=== PATIENT | female | born 1940 | race Caucasian/White ===

== ENCOUNTER 2017-01-20 19:04 | Emergency (ER) | payer MEDICARE, BC ==
[2017-01-20 19:55] LABS: CHLORIDE,CL 104 mmol/L (101-111); SODIUM,NA 141 mmol/L (135-145)
[2017-01-20] MEDS ORDERED: Potassium Chloride 10 MEQ Tab.ER PO ONE (20:14)
[2017-01-20 23:25] VITALS: BP 113/58
--- NOTE | 2017-01-21 00:09 | EDM.PDOC ---
ED HPI GENERAL MEDICAL PROBLEM - General Chief Complaint: Cardiovascular Problem Stated Complaint: PROBLEMS REGULATING HEART RATE, [id number] Time Seen by Provider: 01/20/17 19:15 Source of Information: Reports: Patient History Limitations: Reports: No Limitations - History of Present Illness INITIAL COMMENTS - FREE TEXT/NARRATIVE: ED with complaint of high heart . rate and BP today. HR has been in the 80-90's and BP 140's. Has felt dizzy at times. Has hx of feeling dizzy and no cause has been determined. headache this afternoon. Admits hx of migraine auras but usually does not get headache. Has not tried anything for headache. Located right parietal. Reports just not feeling well all day, No nausea, chills or fever . No cold symptoms. COPD hx has O@ at home but does not use continuously . Headache Pain Score (Numeric/FACES): 2 - Related Data Allergies Allergy/AdvReac Type Severity Reaction Status Date / Time promethazine HCl Allergy Severe Airway Verified 01/20/17 19:08 [From Phenergan] Tightness Tetanus Vaccines and Toxoid Allergy Rash Verified 01/20/17 19:08 [Tetanus Vaccines & Toxoid] Home Meds: Home Meds Albuterol [Ventolin HFA] 2 puff INH Q6HRRT PRN 06/27/13 [History] Aspirin [Ecotrin] 81 mg PO BEDTIME 06/27/13 [History] Furosemide 60 mg PO DAILY 06/27/13 [History] Methylcellulose [Citrucel] 479 gm PO DAILY 06/27/13 [History] Nicotine [Nicotrol] 10 mg IH DAILY PRN 06/27/13 [History] Nitroglycerin [Nitrostat] 0.4 mg SL .[id number] PRN 06/27/13 [History] Omeprazole 20 mg PO DAILY 06/27/13 [History] Roflumilast [Daliresp] 500 mcg PO .NOON 06/27/13 [History] Rosuvastatin Calcium [Crestor] 10 mg PO BEDTIME 06/27/13 [History] Tiotropium [Spiriva Handihaler] 18 mcg INH DAILY 06/27/13 [History] Albuterol [Proventil Neb Soln] 2.5 mg NEB Q4HR PRN 06/22/14 [History] Allopurinol [Zyloprim] 150 mg PO DAILY 06/22/14 [History] Carvedilol 12.5 mg PO BID 06/22/14 [History] Montelukast Sodium [Singulair] 10 mg PO DAILY 06/22/14 [History] Potassium Chloride 5 tab PO TID 04/11/15 [History] Fluticasone/Salmeterol [Advair Hfa 230-21 Mcg Inhaler] 1 puff IH BID 09/24/15 [ History] Iron,Carbonyl/Ascorbic Acid [Vitron-C Tablet] 2 each PO DAILY 05/08/16 [History] Past Medical History HEENT History: Reports: Impaired Vision Cardiovascular History: Reports: Afib, High Cholesterol, Hypertension Other Cardiovascular History: aortic stenosis Respiratory History: Reports: COPD, SOB Gastrointestinal History: Reports: None Genitourinary History: Reports: None FUR GRADER History: Reports: Other OB/BYN History: 3 nvd Musculoskeletal History: Reports: Arthritis, Back Pain, Chronic, Fracture, Fibromyalgia, Gout, Neck Pain, Chronic Neurological History: Reports: Vertigo Psychiatric History: Reports: Anxiety Endocrine/Metabolic History: Reports: None Hematologic History: Reports: Anemia Immunologic History: Reports: None Oncologic (Cancer) History: Reports: Colon Dermatologic History: Reports: None - Infectious Disease History Infectious Disease History: Reports: Chicken Pox, Measles - Past Surgical History GI Surgical History: Reports: Appendectomy, Colonoscopy, EGD, Hernia Repair/ Other Female Surgical History: Reports: D&C Neurological Surgical History: Reports: None Social & Family History - Family History Family Medical History: Noncontributory HEENT: Reports: Cataract Cardiac: Reports: CAD, Heart Failure, [place] Other Cardiac Family History: brother had bypass and mother had a heart attack Respiratory: Reports: COPD GI: Reports: Cholelithiasis, GERD : Reports: UTI, Recurrent Other Family History: sister gets lots of UTI OBGYN: Reports: , Other (See Below) Other OBGYN Family History: mom miscarried Musculoskeletal: Reports: Arthritis, Back pain, Chronic, Gout Dermatologic: Reports: Eczema Other Dermatologic Family History: mom had eczema - Tobacco Use Smoking Status *Q: Former Smoker Years of Tobacco use: 40 Packs/Tins Daily: 1 Used Tobacco, but Quit: Yes Month Tobacco Last Used: adam Tobacco Use Comment: quit in 1999 Second Hand Smoke Exposure: No - Caffeine Use Caffeine Use: Reports: Coffee Other Caffeine Use: 1 cup daily - Alcohol Use Days Per Week of Alcohol Use: 0 - Recreational Drug Use Recreational Drug Use: No - Living Situation & Occupation Living situation: Reports: Occupation: Retired ED ROS GENERAL - Review of Systems Review Of Systems: See Below Constitutional: Reports: No Symptoms HEENT: Reports: Glasses Respiratory: Denies: Shortness of Breath, Pleuritic Chest Pain, Cough Cardiovascular: Reports: Dyspnea on Exertion (no change from baseline ), Lightheadedness, Palpitations. Denies: Chest Pain GI/Abdominal: Reports: No Symptoms. Denies: Nausea, Vomiting Musculoskeletal: Reports: No Symptoms Skin: Reports: No Symptoms Neurological: Reports: Dizziness. Denies: Difficulty Walking, Weakness, Change in Speech Psychiatric: Reports: Anxiety ED EXAM, GENERAL - Physical Exam Exam: See Below Exam Limited By: No Limitations General Appearance: Alert, Anxious Eye Exam: Bilateral Eye: EOMI, Normal Fundi, PERRL Ears: Normal External Exam, Hearing Grossly Normal, Normal TMs Nose: Normal Inspection Throat/Mouth: Normal Inspection, No Airway Compromise Head: Atraumatic, Normocephalic Neck: Normal Inspection Respiratory/Chest: Decreased Breath Sounds. No: Respiratory Distress, Rales, Wheezing Cardiovascular: Regular Rate, Rhythm, No Edema GI/Abdominal: Normal Bowel Sounds, Soft Back Exam: Normal Inspection Extremities: Normal Inspection. No: Pedal Edema Neurological: Alert, Oriented, Normal Cognition, No Motor/Sensory Deficits Psychiatric: Normal Affect, Anxious Skin Exam: Warm, Dry, Intact, Normal Color Course - Vital Signs Last Recorded V/S: Last Vital Signs Temp 98 F 01/20/17 21:27 Pulse 66 01/20/17 23:24 Resp 18 01/20/17 22:12 BP 113/58 L 01/20/17 23:24 Pulse Ox 94 L 01/20/17 23:24 Orthostatic Blood Pressure [ 113/65 Standing] Orthostatic Blood Pressure [ 132/62 Sitting] Orthostatic Blood Pressure [ 139/62 Supine] - Orders/Labs/Meds Orders: Active Orders 24 hr Category Date Time Status EKG 12 Lead [EKG Documentation Completion] [RC] URGENT Care 01/20/17 19:17 Active EKG Documentation Completion [RC] URGENT Care 01/20/17 23:20 Active Labs: Laboratory Tests 01/20/17 01/20/1717 Range/Units 19:33 19:33 19:33 WBC 10.3 H (5.0-10.0) 10^3/uL RBC 4.60 (4.2-5.4) 10^6/uL Hgb 13.3 (12.0-16.0) g/dL Hct 40.9 (37.0-47.0) % MCV 88.9 D (80-100) fL MCH 28.9 (27.0-34.0) pg MCHC 32.5 L (33.0-35.0) g/dL Plt Count 270 (150-450) 10^3/uL Neut % (Auto) 69.8 (42.2-75.2) % Lymph % (Auto) 19.7 L (20.5-50.1) % [place] % (Auto) 8.3 H (2-8) % Eos % (Auto) 1.7 (1.0-3.0) % Baso % (Auto) 0.5 (0.0-1.0) % PT 9.3 D (9.0-12.0) SEC INR 0.9 (0.9-1.2) Sodium 141 (135-145) mmol/L Potassium 3.0 L (3.6-5.0) mmol/L Chloride 104 (101-111) mmol/L Carbon Dioxide 25.0 (21.0-31.0) mmol/L Anion Gap 15.0 BUN 13 (7-18) mg/dL Creatinine 0.7 (0.6-1.3) mg/dL Est Cr Clr Drug Dosing 63.75 mL/min Estimated GFR (MDRD) > 60 BUN/Creatinine Ratio 18.57 Glucose 129 H (74-105) mg/dL Calcium 9.8 (8.4-10.2) mg/dl Total Bilirubin 0.5 (0.2-1.0) mg/dL AST 20 (10-42) IU/L ALT 16 (10-60) IU/L Alkaline Phosphatase 83 (42-121) IU/L Troponin I < 0.02 (0.00-0.02) ng/ml B-Natriuretic Peptide 119 H (0-100) pg/ml Total Protein 7.5 (6.7-8.2) g/dl Albumin 4.4 (3.2-5.5) g/dl Globulin 3.1 Albumin/Globulin Ratio 1.42 Amylase 108 H (28-100) U/L Lipase 30 (22-51) U/L Urine Color (YELLOW) Urine Appearance (CLEAR) Urine pH (5.0-9.0) Ur Specific [place] (1.005-1.030) Urine Protein (NEGATIVE) Urine Glucose (UA) (NEGATIVE) Urine Ketones (NEGATIVE) Urine Occult Blood (NEGATIVE) Urine Nitrite (NEGATIVE) Urine Bilirubin (NEGATIVE) Urine Urobilinogen (0.2-1.0) mg/dL Ur Leukocyte Esterase (NEGATIVE) Urine RBC /HPF Urine WBC (0-5/HPF) /HPF Ur Epithelial Cells /HPF Urine Bacteria (0-FEW/HPF) /HPF 01/20/17 01/20/17 Range/Units 19:47 23:20 WBC (5.0-10.0) 10^3/uL RBC (4.2-5.4) 10^6/uL Hgb (12.0-16.0) g/dL Hct (37.0-47.0) % MCV (80-100) fL MCH (27.0-34.0) pg MCHC (33.0-35.0) g/dL Plt Count (150-450) 10^3/uL Neut % (Auto) (42.2-75.2) % Lymph % (Auto) (20.5-50.1) % [place] % (Auto) (2-8) % Eos % (Auto) (1.0-3.0) % Baso % (Auto) (0.0-1.0) % PT (9.0-12.0) SEC INR (0.9-1.2) Sodium (135-145) mmol/L Potassium (3.6-5.0) mmol/L Chloride (101-111) mmol/L Carbon Dioxide (21.0-31.0) mmol/L Anion Gap BUN (7-18) mg/dL Creatinine (0.6-1.3) mg/dL Est Cr Clr Drug Dosing mL/min Estimated GFR (MDRD) BUN/Creatinine Ratio Glucose (74-105) mg/dL Calcium (8.4-10.2) mg/dl Total Bilirubin (0.2-1.0) mg/dL AST (10-42) IU/L ALT (10-60) IU/L Alkaline Phosphatase (42-121) IU/L Troponin I < 0.02 (0.00-0.02) ng/ml B-Natriuretic Peptide (0-100) pg/ml Total Protein (6.7-8.2) g/dl Albumin (3.2-5.5) g/dl Globulin Albumin/Globulin Ratio Amylase (28-100) U/L Lipase (22-51) U/L Urine Color Light yellow (YELLOW) Urine Appearance Clear (CLEAR) Urine pH 6.0 (5.0-9.0) Ur Specific [place] <= 1.005 (1.005-1.030) Urine Protein Negative (NEGATIVE) Urine Glucose (UA) Negative (NEGATIVE) Urine Ketones Negative (NEGATIVE) Urine Occult Blood Negative (NEGATIVE) Urine Nitrite Negative (NEGATIVE) Urine Bilirubin Negative (NEGATIVE) Urine Urobilinogen 0.2 (0.2-1.0) mg/dL Ur Leukocyte Esterase Negative (NEGATIVE) Urine RBC 0-5 /HPF Urine WBC 0-5 (0-5/HPF) /HPF Ur Epithelial Cells Rare /HPF Urine Bacteria Rare (0-FEW/HPF) /HPF Meds: Medications Discontinued Medications Generic Name Dose Route Start Last Admin Trade Name Freq PRN Reason Stop Dose Admin Potassium Chloride 20 meq 01/20/17 20:14 01/20/17 20:24 Klor-Con 10 PO 01/20/17 20:15 20 meq ONETIME ONE Administration - Radiology Interpretation Free Text/Narrative:: CXR : emphysema, no pneumonia. CT head: No acute changes, - Re-Assessments/Exams Free Text/Narrative Re-Assessment/Exam: Telemetry continued NSR rate, decreased to 70-80's, BP stable. No pain, Repeat Troponin and EKG negative. Patient instructed to utilize oxygen on more continual basis. Follow up in clinic for recheck of potassium. Departure - Departure Time of Disposition: 00:05 Disposition: Home, Self-Care 01 Condition: Good Clinical Impression: Anxiety, Palpitations Instructions: Palpitations, [id number] Forms: ED Department Discharge Additional Instructions: Rest follow up in clinic on for recheck of Potassium - My Orders Last 24 Hours: My Active Orders 01/20/17 19:17 EKG 12 Lead [EKG Documentation Completion] [RC] URGENT 01/20/17 23:20 EKG Documentation Completion [RC] URGENT - Assessment/Plan Last 24 Hours: My Active Orders 01/20/17 19:17 EKG 12 Lead [EKG Documentation Completion] [RC] URGENT 01/20/17 23:20 EKG Documentation Completion [RC] URGENT
--- NOTE | 2017-01-21 12:57 | EKG ---
01/20/2017 - SHEBA GANDHI - TIME: 1909 hours EKG shows normal sinus rhythm. 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 [facility] /[id number]
--- NOTE | 2017-01-21 13:17 | EKG ---
01/20/2017 - SHEBA GANDHI - TIME: 2316 hours. FINDINGS: EKG shows normal sinus rhythm. 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 [facility] /[id number]
== END 2017-01-21 00:31 | disposition home or self-care (01) ==
LOC: DL.ED 19:04
DX: F41.9 Anxiety disorder, unspecified (principal); E78.00 Pure hypercholesterolemia, unspecified; I10 Essential (primary) hypertension; J44.9 Chronic obstructive pulmonary disease, unspecified; Z88.8 Allergy status to other drugs, medicaments and biological substances; Z79.899 Other long term (current) drug therapy; Z87.891 Personal history of nicotine dependence
CPT/HCPCS: 36415; 70450; 71010; 80053; 81001; 82150; 83690; 83880; 84484; 85025; 85610; 93005; 93010; 99284; A9270

== ENCOUNTER 2017-04-09 08:53 | Emergency (ER) | payer MEDICARE, BC ==
--- NOTE | 2017-04-09 09:23 | EDM.PDOC ---
ED HPI GENERAL MEDICAL PROBLEM - General Chief Complaint: Abdominal Pain Stated Complaint: LOWER ABD PAIN, RT SIDE Time Seen by Provider: 04/09/17 09:23 Source of Information: Reports: Patient, Old Records, RN, RN Notes Reviewed History Limitations: Reports: No Limitations - History of Present Illness INITIAL COMMENTS - FREE TEXT/NARRATIVE: Arrives from home by POV with c/o onset of RLQ abdominal pain last night that has persisted and is worse today. Pt has Hx of remote appendectomy. Denies fever , chills, N/V/D/C. Pt states her stool is always dark due to chronic oral iron supplementation for anemia. Denies any radiating pain, or urinary symptoms. Denies any blood or mucus in stool. Last BM yesterday and described as normal per pt. Onset Date: 04/08/17 Duration: Constant, Getting Worse Location: Reports: Abdomen Quality: Reports: Ache Severity: Moderate Improves with: Reports: None Worsens with: Reports: None Associated Symptoms: Reports: No Other Symptoms Right Lower Abdomen Pain Score (Numeric/FACES): 2 - Related Data Allergies Allergy/AdvReac Type Severity Reaction Status Date / Time promethazine HCl Allergy Severe Airway Verified 04/09/17 09:17 [From Phenergan] Tightness Tetanus Vaccines and Toxoid Allergy Rash Verified 04/09/17 09:17 [Tetanus Vaccines & Toxoid] Home Meds: Home Meds Albuterol [Ventolin HFA] 2 puff INH Q6HRRT PRN 06/27/13 [History] Aspirin [Ecotrin] 81 mg PO BEDTIME 06/27/13 [History] Furosemide 60 mg PO DAILY 06/27/13 [History] Methylcellulose [Citrucel] 479 gm PO DAILY 06/27/13 [History] Nicotine [Nicotrol] 10 mg IH DAILY PRN 06/27/13 [History] Nitroglycerin [Nitrostat] 0.4 mg SL .[id number] PRN 06/27/13 [History] Omeprazole 20 mg PO DAILY 06/27/13 [History] Roflumilast [Daliresp] 500 mcg PO .NOON 06/27/13 [History] Rosuvastatin Calcium [Crestor] 10 mg PO BEDTIME 06/27/13 [History] Tiotropium [Spiriva Handihaler] 18 mcg INH DAILY 06/27/13 [History] Albuterol [Proventil Neb Soln] 2.5 mg NEB Q4HR PRN 06/22/14 [History] Allopurinol [Zyloprim] 150 mg PO DAILY 06/22/14 [History] Carvedilol 12.5 mg PO BID 06/22/14 [History] Montelukast Sodium [Singulair] 10 mg PO DAILY 06/22/14 [History] Potassium Chloride 5 tab PO TID 04/11/15 [History] Fluticasone/Salmeterol [Advair Hfa 230-21 Mcg Inhaler] 1 puff IH BID 09/24/15 [ History] Iron,Carbonyl/Ascorbic Acid [Vitron-C Tablet] 2 each PO DAILY 05/08/16 [History] Past Medical History HEENT History: Reports: Impaired Vision Cardiovascular History: Reports: Afib, High Cholesterol, Hypertension, PVD Other Cardiovascular History: aortic stenosis Respiratory History: Reports: COPD, SOB Gastrointestinal History: Reports: Diverticulosis, GERD, Hiatal Hernia, Other ( See Below) (non-alcoholic steatohepatitis) Genitourinary History: Reports: None TRAINER History: Reports: Other OB/BYN History: 3 nvd Musculoskeletal History: Reports: Arthritis, Back Pain, Chronic, Fracture, Fibromyalgia, Gout, Neck Pain, Chronic Neurological History: Reports: Vertigo Psychiatric History: Reports: Anxiety Endocrine/Metabolic History: Reports: None Hematologic History: Reports: Anemia Immunologic History: Reports: None Oncologic (Cancer) History: Reports: Colon Dermatologic History: Reports: None - Infectious Disease History Infectious Disease History: Reports: Chicken Pox, Measles - Past Surgical History HEENT Surgical History: Reports: Adenoidectomy, Tonsillectomy Cardiovascular Surgical History: Reports: Percutaneous Transluminal Angioplasty , Valve Replacement (aortic) GI Surgical History: Reports: Appendectomy, Colonoscopy, EGD, Hernia Repair/ Other, Other (See Below) (sigmoidectomy) Female Surgical History: Reports: D&C Neurological Surgical History: Reports: None Musculoskeletal Surgical History: Reports: ORIF (left hip) Social & Family History - Family History Family Medical History: Noncontributory HEENT: Reports: Cataract Cardiac: Reports: CAD, Heart Failure, [place] Other Cardiac Family History: brother had bypass and mother had a heart attack Respiratory: Reports: COPD GI: Reports: Cholelithiasis, GERD : Reports: UTI, Recurrent Other Family History: sister gets lots of UTI OBGYN: Reports: , Other (See Below) Other OBGYN Family History: mom miscarried Musculoskeletal: Reports: Arthritis, Back pain, Chronic, Gout Dermatologic: Reports: Eczema Other Dermatologic Family History: mom had eczema - Tobacco Use Smoking Status *Q: Former Smoker Years of Tobacco use: 40 Packs/Tins Daily: 1 Used Tobacco, but Quit: Yes Month Tobacco Last Used: apr Second Hand Smoke Exposure: No - Caffeine Use Caffeine Use: Reports: Coffee Other Caffeine Use: 1 cup daily - Alcohol Use Days Per Week of Alcohol Use: 0 - Recreational Drug Use Recreational Drug Use: No - Living Situation & Occupation Living situation: Reports: Occupation: Retired ED ROS GENERAL - Review of Systems Review Of Systems: ROS reveals no pertinent complaints other than HPI. ED EXAM, GI/ABD - Physical Exam Exam: See Below Exam Limited By: No Limitations General Appearance: Alert, WD/WN, No Apparent Distress Throat/Mouth: Normal Inspection Head: Atraumatic, Normocephalic Neck: Normal Inspection, Supple, Non-Tender, Full Range of Motion Respiratory/Chest: No Respiratory Distress, Lungs Clear, Normal Breath Sounds, No Accessory Muscle Use, Chest Non-Tender Cardiovascular: Regular Rate, Rhythm, No Edema GI/Abdominal Exam: Normal Bowel Sounds, Soft, No Distention, No Abnormal Bruit, Tender (focal to RLQ). No: Guarding, Rigid, Rebound (Female) Exam: Deferred Rectal (Female) Exam: Deferred Back Exam: Normal Inspection. No: CVA Tenderness (L), CVA Tenderness (R) Extremities: Normal Inspection Neurological: Alert, Oriented, CN II-XII Intact, Normal Cognition, Normal Gait, No Motor/Sensory Deficits Psychiatric: Normal Affect, Normal Mood Skin Exam: Warm, Dry, Intact, Normal Color, No Rash Course - Vital Signs Last Recorded V/S: Last Vital Signs Temp 36.6 C 04/09/17 11:14 Pulse 78 04/09/17 11:14 Resp 16 04/09/17 11:14 BP 130/54 L 04/09/17 11:14 Pulse Ox 94 L 04/09/17 11:14 - Orders/Labs/Meds Orders: Active Orders 24 hr Category Date Time Status Peripheral IV Care [RC] . DIRECTED Care 04/09/17 09:35 Active Abdomen Pelvis w Cont [CT] Urgent Exams 04/09/17 09:57 Taken Sodium Chloride 0.9% [Saline Flush] Med 04/09/17 09:35 Active 10 ml FLUSH ASDIRECTED PRN Peripheral IV Insertion Adult [OM.PC] Stat Oth 04/09/17 09:35 Ordered Medication Orders Sodium Chloride (Saline Flush) 10 ml FLUSH ASDIRECTED PRN PRN Reason: Keep Vein Open Last Admin: 04/09/17 09:55 Dose: 10 ml Labs: Laboratory Tests 04/09/17 04/09/17 04/09/17 Range/Units 09:45 09:45 09:45 WBC 8.3 (5.0-10.0) 10^3/uL RBC 4.56 (4.2-5.4) 10^6/uL Hgb 12.9 (12.0-16.0) g/dL Hct 39.3 (37.0-47.0) % MCV 86.2 (80-100) fL MCH 28.3 (27.0-34.0) pg MCHC 32.8 L (33.0-35.0) g/dL Plt Count 257 (150-450) 10^3/uL Neut % (Auto) 72.0 (42.2-75.2) % Lymph % (Auto) 17.2 L (20.5-50.1) % [place] % (Auto) 8.6 H (2-8) % Eos % (Auto) 1.8 (1.0-3.0) % Baso % (Auto) 0.4 (0.0-1.0) % Sodium 137 (135-145) mmol/L Potassium 3.1 L (3.6-5.0) mmol/L Chloride 101 (101-111) mmol/L Carbon Dioxide 27.0 (21.0-31.0) mmol/L Anion Gap 12.1 BUN 16 (7-18) mg/dL Creatinine 0.7 (0.6-1.3) mg/dL Est Cr Clr Drug Dosing 61.52 mL/min Estimated GFR (MDRD) > 60 BUN/Creatinine Ratio 22.85 Glucose 110 H (74-105) mg/dL Lactic Acid 0.7 (0.5-2.2) mmol/L Calcium 9.5 (8.4-10.2) mg/dl Total Bilirubin 0.6 (0.2-1.0) mg/dL AST 21 (10-42) IU/L ALT 16 (10-60) IU/L Alkaline Phosphatase 72 (42-121) IU/L Total Protein 7.3 (6.7-8.2) g/dl Albumin 4.2 (3.2-5.5) g/dl Globulin 3.1 Albumin/Globulin Ratio 1.35 Amylase 100 (28-100) U/L Lipase 24 (22-51) U/L Urine Color (YELLOW) Urine Appearance (CLEAR) Urine pH (5.0-9.0) Ur Specific [place] (1.005-1.030) Urine Protein (NEGATIVE) Urine Glucose (UA) (NEGATIVE) Urine Ketones (NEGATIVE) Urine Occult Blood (NEGATIVE) Urine Nitrite (NEGATIVE) Urine Bilirubin (NEGATIVE) Urine Urobilinogen (0.2-1.0) mg/dL Ur Leukocyte Esterase (NEGATIVE) Urine RBC /HPF Urine WBC (0-5/HPF) /HPF Ur Epithelial Cells /HPF Urine Bacteria (0-FEW/HPF) /HPF Urine Mucus /LPF 04/09/17 Range/Units 09:56 WBC (5.0-10.0) 10^3/uL RBC (4.2-5.4) 10^6/uL Hgb (12.0-16.0) g/dL Hct (37.0-47.0) % MCV (80-100) fL MCH (27.0-34.0) pg MCHC (33.0-35.0) g/dL Plt Count (150-450) 10^3/uL Neut % (Auto) (42.2-75.2) % Lymph % (Auto) (20.5-50.1) % [place] % (Auto) (2-8) % Eos % (Auto) (1.0-3.0) % Baso % (Auto) (0.0-1.0) % Sodium (135-145) mmol/L Potassium (3.6-5.0) mmol/L Chloride (101-111) mmol/L Carbon Dioxide (21.0-31.0) mmol/L Anion Gap BUN (7-18) mg/dL Creatinine (0.6-1.3) mg/dL Est Cr Clr Drug Dosing mL/min Estimated GFR (MDRD) BUN/Creatinine Ratio Glucose (74-105) mg/dL Lactic Acid (0.5-2.2) mmol/L Calcium (8.4-10.2) mg/dl Total Bilirubin (0.2-1.0) mg/dL AST (10-42) IU/L ALT (10-60) IU/L Alkaline Phosphatase (42-121) IU/L Total Protein (6.7-8.2) g/dl Albumin (3.2-5.5) g/dl Globulin Albumin/Globulin Ratio Amylase (28-100) U/L Lipase (22-51) U/L Urine Color Yellow (YELLOW) Urine Appearance Clear (CLEAR) Urine pH 6.0 (5.0-9.0) Ur Specific [place] 1.020 (1.005-1.030) Urine Protein 100 H (NEGATIVE) Urine Glucose (UA) Negative (NEGATIVE) Urine Ketones Negative (NEGATIVE) Urine Occult Blood Trace-intact H (NEGATIVE) Urine Nitrite Negative (NEGATIVE) Urine Bilirubin Negative (NEGATIVE) Urine Urobilinogen 0.2 (0.2-1.0) mg/dL Ur Leukocyte Esterase Negative (NEGATIVE) Urine RBC 0-5 /HPF Urine WBC 0-5 (0-5/HPF) /HPF Ur Epithelial Cells Many H /HPF Urine Bacteria Few (0-FEW/HPF) /HPF Urine Mucus Moderate H /LPF Meds: Medications Generic Name Dose Route Start Last Admin Trade Name Freq PRN Reason Stop Dose Admin Sodium Chloride 10 ml 04/09/17 09:35 04/09/17 09:55 Saline Flush FLUSH 10 ml ASDIRECTED PRN Administration Keep Vein Open Discontinued Medications Generic Name Dose Route Start Last Admin Trade Name Freq PRN Reason Stop Dose Admin Sodium Chloride 1,000 mls @ 999 mls/hr 04/09/17 09:56 04/09/17 10:07 Normal Saline IV 04/09/17 10:56 999 mls/hr .BOLUS ONE Administration Iopamidol 75 ml 04/09/17 09:57 04/09/17 11:02 Isovue-300 (61%) IVPUSH 04/09/17 09:58 75 ml ONETIME ONE Administration - Radiology Interpretation Free Text/Narrative:: CT Abd/Pelvis: no acute findings per Rad. report. Departure - Departure Time of Disposition: 11:59 Disposition: Home, Self-Care 01 Condition: Good Clinical Impression: Abdominal pain Qualifiers: Abdominal location: right lower quadrant Qualified Code(s): R10.31 - Right lower quadrant pain - Discharge Information Instructions: Abdominal Pain, Adult, [id number] Forms: ED Department Discharge Additional Instructions: Try prune juice and/or stool softener. High fiber diet with fresh fruits and vegetables. Follow up in clinic with your doctor if the pain does not resolve in the next 24 hours. Return to ER if you develop any fever, or other concerning new symptoms. - My Orders Last 24 Hours: My Active Orders 04/09/17 09:35 Peripheral IV Care [RC] . DIRECTED Sodium Chloride 0.9% [Saline Flush] 10 ml FLUSH ASDIRECTED PRN Peripheral IV Insertion Adult [OM.PC] Stat 04/09/17 09:57 Abdomen Pelvis w Cont [CT] Urgent - Assessment/Plan Last 24 Hours: My Active Orders 04/09/17 09:35 Peripheral IV Care [RC] . DIRECTED Sodium Chloride 0.9% [Saline Flush] 10 ml FLUSH ASDIRECTED PRN Peripheral IV Insertion Adult [OM.PC] Stat 04/09/17 09:57 Abdomen Pelvis w Cont [CT] Urgent
[2017-04-09] MEDS ORDERED: Sodium Chloride 0.9% 10 ML Syringe FLUSH PRN (09:35)
[2017-04-09] MEDS ORDERED: Sodium Chloride 0.9% 1,000 ML IV ONE (09:56)
[2017-04-09] MEDS ORDERED: Iopamidol 612 MG/ML 75 ML Bottle IVPUSH ONE (09:57)
[2017-04-09 10:13] LABS: CHLORIDE,CL 101 mmol/L (101-111); SODIUM,NA 137 mmol/L (135-145)
[2017-04-09 11:15] VITALS: BP 130/54
--- NOTE | 2017-04-09 12:53 | CT ---
Clinical history: 77-year-old 135 pound female with COPD and right lower quadrant pain who has had pr evious "colon surgery" and appendectomy (CT evaluation abdomen for iron deficiency anemia and chroni c GI bleed on 08 September 2012 revealed "diverticulosis sigmoid and left colon"). Scan technique: Volume acquisition of data from the abdomen and pelvis obtained without oral contrast but during/after intravenous administration 75 cc nonionic Isovue contrast (3 cc/s via injector) whi le the patient was lying supine on the Siemens multi slice scanner [place], [place]. All data archived in the PACS system for storage, reformatting and study. Interpretation: 1. Numerous diverticula sigmoid and descending left colon without associated signs of inflammation. 2. Normal gallbladder. Stomach, spleen, pancreas and adrenal glands unremarkable. Large (18.2 cm L) h omogeneously dense liver without discrete intrahepatic cystic or solid mass lesion and no abnormal dilatation of t he intra/extrahepatic ducts. 3. Extensive atheromatous calcifications ectatic abdominal aorta (mild infrarenal aneurysmal
== END 2017-04-09 12:07 | disposition home or self-care (01) ==
LOC: DL.ED 08:53
DX: R10.31 Right lower quadrant pain (principal); I10 Essential (primary) hypertension; E78.00 Pure hypercholesterolemia, unspecified; Z87.891 Personal history of nicotine dependence; Z88.8 Allergy status to other drugs, medicaments and biological substances; Z79.82 Long term (current) use of aspirin; Z79.899 Other long term (current) drug therapy; Z88.7 Allergy status to serum and vaccine
CPT/HCPCS: 36415; 74177; 80053; 81001; 82150; 83605; 83690; 85025; 96360; 99284; J7030; J7050; Q9967

== ENCOUNTER 2017-11-25 11:16 | Emergency (ER) | payer MEDICARE, BC ==
[2017-11-25 11:28] VITALS: BP 164/71
[2017-11-25] MEDS ORDERED: Oxymetazoline 0.05% Nasal Spray 15 ML Bottle ONE (11:35)
[2017-11-25] MEDS ORDERED: Oxymetazoline 0.05% Nasal Spray 15 ML Bottle NAS ONE (11:49)
--- NOTE | 2017-11-25 12:30 | EDM.PDOC ---
ED HPI GENERAL MEDICAL PROBLEM - General Chief Complaint: ENT Problem Stated Complaint: NOSE BLEED Time Seen by Provider: 11/25/17 12:15 Source of Information: Reports: Patient History Limitations: Reports: No Limitations - History of Present Illness INITIAL COMMENTS - FREE TEXT/NARRATIVE: This 77 yo female patient reports to the ED with a bloody nose. The patient reports she has had a history of nosebleeds in the past, but none have been this bad. . The patient reports she has attempted to use direct pressure, but she has continued to bleed. The patient has been using AYR, but continues to have problems. Onset: Today Duration: Hour(s):, Constant Location: Reports: Face (right nare) Quality: Reports: Other Severity: Moderate Improves with: Reports: None Worsens with: Reports: None Associated Symptoms: Reports: No Other Symptoms - Related Data Allergies Allergy/AdvReac Type Severity Reaction Status Date / Time promethazine HCl Allergy Severe Airway Verified 11/25/17 11:38 [From Phenergan] Tightness Tetanus Vaccines and Toxoid Allergy Rash Verified 11/25/17 11:38 [Tetanus Vaccines & Toxoid] Home Meds: Home Meds Albuterol [Ventolin HFA] 2 puff INH Q6HRRT PRN 06/27/13 [History] Aspirin [Ecotrin] 81 mg PO BEDTIME 06/27/13 [History] Furosemide 40 mg PO DAILY 06/27/13 [History] Nicotine [Nicotrol] 10 mg IH DAILY PRN 06/27/13 [History] Nitroglycerin [Nitrostat] 0.4 mg SL .[id number] PRN 06/27/13 [History] Omeprazole 20 mg PO DAILY 06/27/13 [History] Roflumilast [Daliresp] 500 mcg PO .NOON 06/27/13 [History] Rosuvastatin Calcium [Crestor] 20 mg PO BEDTIME 06/27/13 [History] Tiotropium [Spiriva Handihaler] 18 mcg INH DAILY 06/27/13 [History] Albuterol [Proventil Neb Soln] 2.5 mg NEB Q4HR PRN 06/22/14 [History] Allopurinol [Zyloprim] 300 mg PO DAILY 06/22/14 [History] Carvedilol 25 mg PO BID 06/22/14 [History] Montelukast Sodium [Singulair] 10 mg PO DAILY 06/22/14 [History] Potassium Chloride 20 meq PO TID 04/11/15 [History] Fluticasone/Salmeterol [Advair Hfa 230-21 Mcg Inhaler] 1 puff IH BID 09/24/15 [ History] Acetaminophen [Tylenol Arthritis Pain] 650 mg PO Q8H PRN 11/08/17 [History] Past Medical History HEENT History: Reports: Epistaxis, Impaired Vision, Other (See Below) Cardiovascular History: Reports: Afib, Aneurysm, CAD, Heart Valve Replacement, High Cholesterol, Hypertension, Pacemaker, PVD Other Cardiovascular History: aortic stenosis Respiratory History: Reports: Asthma, COPD, SOB Gastrointestinal History: Reports: Diverticulosis, GERD, Hiatal Hernia, Other ( See Below) Genitourinary History: Reports: None 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 History: 3 nvd Musculoskeletal History: Reports: Arthritis, Back Pain, Chronic, Fracture, Fibromyalgia, Gout, Neck Pain, Chronic, Osteoarthritis, Other (See Below) Neurological History: Reports: Vertigo, Other (See Below) Psychiatric History: Reports: Anxiety Endocrine/Metabolic History: Reports: None, Other (See Below) Hematologic History: Reports: None, Anemia Immunologic History: Reports: None Oncologic (Cancer) History: Reports: Colon Dermatologic History: Reports: None - Infectious Disease History Infectious Disease History: Reports: Chicken Pox, Measles - Past Surgical History HEENT Surgical History: Reports: Adenoidectomy, Tonsillectomy Cardiovascular Surgical History: Reports: Percutaneous Transluminal Angioplasty , Valve Replacement GI Surgical History: Reports: Appendectomy, Colonoscopy, EGD, Hernia Repair/ Other, Other (See Below) Female Surgical History: Reports: D&C Neurological Surgical History: Reports: None Musculoskeletal Surgical History: Reports: ORIF Social & Family History - Family History Family Medical History: Noncontributory HEENT: Reports: Cataract Cardiac: Reports: CAD, Heart Failure, [place] Other Cardiac Family History: brother had bypass and mother had a heart attack Respiratory: Reports: COPD GI: Reports: Cholelithiasis, GERD : Reports: UTI, Recurrent Other Family History: sister gets lots of UTI OBGYN: Reports: , Other (See Below) Other OBGYN Family History: mom miscarried Musculoskeletal: Reports: Arthritis, Back pain, Chronic, Gout Dermatologic: Reports: Eczema Other Dermatologic Family History: mom had eczema - Tobacco Use Smoking Status *Q: Former Smoker Used Tobacco, but Quit: Yes Month/Year Tobacco Last Used: 04/1997 - Caffeine Use Caffeine Use: Reports: Coffee Other Caffeine Use: 1 cup daily - Recreational Drug Use Recreational Drug Use: No - Living Situation & Occupation Living situation: Reports: Occupation: Retired ED ROS ENT - Review of Systems Review Of Systems: ROS reveals no pertinent complaints other than HPI. ED EXAM, ENT - Physical Exam Exam: See Below Exam Limited By: No Limitations General Appearance: Alert, WD/WN, Moderate Distress Eye Exam: Bilateral Eye: EOMI, Normal Inspection, PERRL Ears: Normal External Exam, Normal Canal, Hearing Grossly Normal, Normal TMs Nose: Dried Blood (right nare) Mouth/Throat: Normal Inspection, Normal Gums, Normal Lips, Other (some bloody transudate in the posterior pharynx) Head: Atraumatic, Normocephalic Neck: Normal Inspection, Supple, Non-Tender, Full Range of Motion Respiratory/Chest: No Respiratory Distress, Lungs Clear, Normal Breath Sounds, No Accessory Muscle Use, Chest Non-Tender Cardiovascular: Normal Peripheral Pulses, Regular Rate, Rhythm, No Edema, No Gallop, No JVD, No Murmur, No Rub GI/Abdominal: Normal Bowel Sounds, Soft, Non-Tender, No Organomegaly, No Distention, No Abnormal Bruit, No Mass (Female) Exam: Deferred Rectal (Female) Exam: Deferred Back: Normal Inspection, Full Range of Motion Extremities: Normal Inspection, Normal Range of Motion, Non-Tender, No Pedal Edema, Normal Capillary Refill Neurological: Alert, Oriented, CN II-XII Intact, Normal Cognition, Normal Gait, Normal Reflexes, No Motor/Sensory Deficits Psychiatric: Normal Affect, Normal Mood Skin: Warm, Dry, Intact, Normal Color, No Rash Lymphatic: No Adenopathy Course - Vital Signs Last Recorded V/S: Last Vital Signs Temp 37.2 C 11/25/17 11:27 Pulse 82 11/25/17 11:27 Resp 17 11/25/17 11:27 BP 164/71 H 11/25/17 11:27 Pulse Ox 96 11/25/17 11:27 - Orders/Labs/Meds Meds: Medications Discontinued Medications Generic Name Dose Route Start Last Admin Trade Name Freq PRN Reason Stop Dose Admin Oxymetazoline HCl Confirm 11/25/17 11:35 11/25/17 11:49 Afrin Original 0.05% Nasal [place] Administered 11/25/17 11:36 Not Given Dose 15 ml .ROUTE .STK-MED ONE Oxymetazoline HCl 1 ml 11/25/17 11:49 11/25/17 11:51 Afrin Original 0.05% Nasal [place] YENY 11/25/17 11:50 1 ml ONETIME ONE Administration Departure - Departure Time of Disposition: 13:01 Disposition: Home, Self-Care 01 Condition: Fair Clinical Impression: Epistaxis - Discharge Information *PRESCRIPTION DRUG MONITORING PROGRAM REVIEWED*: Not Applicable *COPY OF PRESCRIPTION DRUG MONITORING REPORT IN PATIENT RONNA: Not Applicable Instructions: Nosebleed, [id number] Forms: ED Department Discharge Care Plan Goals: The patient was advised of the examination results during the visit. While in the ED, Afrin nasal spray was applied to stop the bleeding. The patient was encouraged to apply a small amount of Aquaphor to each nostril 1-2 times per day to increase the moisture in her nares. If the patient has any additional symptoms or concerns, the patient should follow-up with her primary care facility or return to the emergency department.
== END 2017-11-25 13:09 | disposition home or self-care (01) ==
LOC: DL.ED 11:16
DX: R04.0 Epistaxis (principal); Z87.891 Personal history of nicotine dependence; Z79.899 Other long term (current) drug therapy; Z88.8 Allergy status to other drugs, medicaments and biological substances
CPT/HCPCS: 99283

== ENCOUNTER 2019-01-26 00:35 | Emergency (ER) | payer MEDICARE, BC ==
[2019-01-26 01:18] VITALS: BP 132/70; PULSE 78
--- NOTE | 2019-01-26 01:49 | EDM.PDOC ---
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 She reports trying to ly down to rest but the palpitation did not resolved. She admits to having 2/10 chest discomfort and with her multiple comorbidities, she states she did not want to take chances. On her way to the ER, the palpitations resolved. She denies any CP or SOB at this time. - Related Data Allergies Allergy/AdvReac Type Severity Reaction Status Date / Time promethazine HCl Allergy Severe Airway Verified 01/26/19 01:04 [From Phenergan] Tightness Tetanus Vaccines and Toxoid Allergy Rash Verified 01/26/19 01:04 [Tetanus Vaccines & Toxoid] Home Meds: Home Meds Albuterol [Ventolin HFA] 2 puff INH Q6HRRT PRN 06/27/13 [History] Aspirin [Ecotrin EC] 81 mg PO BEDTIME 06/27/13 [History] Furosemide 40 mg PO DAILY 06/27/13 [History] Nicotine [Nicotrol] 10 mg IH DAILY PRN 06/27/13 [History] Nitroglycerin [Nitrostat] 0.4 mg SL .[id number] PRN 06/27/13 [History] Omeprazole 20 mg PO DAILY 06/27/13 [History] Roflumilast [Daliresp] 500 mcg PO .NOON 06/27/13 [History] Rosuvastatin Calcium [Crestor] 20 mg PO BEDTIME 06/27/13 [History] Tiotropium [Spiriva Handihaler] 18 mcg INH DAILY 06/27/13 [History] Albuterol [Proventil Neb Soln] 2.5 mg NEB Q4HR PRN 06/22/14 [History] Allopurinol [Zyloprim] 300 mg PO DAILY 06/22/14 [History] Carvedilol 25 mg PO BID 06/22/14 [History] Montelukast Sodium [Singulair] 10 mg PO DAILY 06/22/14 [History] Potassium Chloride 20 meq PO TID 04/11/15 [History] Fluticasone/Salmeterol [Advair Hfa 230-21 Mcg Inhaler] 1 puff IH BID 09/24/15 [ History] Acetaminophen [Tylenol Arthritis Pain] 650 mg PO Q8H PRN 11/08/17 [History] Past Medical History HEENT History: Reports: Epistaxis, Impaired Vision, Other (See Below) Cardiovascular History: Reports: Afib, Aneurysm, CAD, Heart Valve Replacement, High Cholesterol, Hypertension, Pacemaker, PVD Other Cardiovascular History: aortic stenosis Respiratory History: Reports: Asthma, COPD, SOB Gastrointestinal History: Reports: Diverticulosis, GERD, Hiatal Hernia, Other ( See Below) Genitourinary History: Reports: None 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 NETWORK LIAISON History: 3 nvd Musculoskeletal History: Reports: Arthritis, Back Pain, Chronic, Fracture, Fibromyalgia, Gout, Neck Pain, Chronic, Osteoarthritis, Other (See Below) Neurological History: Reports: Vertigo Psychiatric History: Reports: Anxiety Endocrine/Metabolic History: Reports: None, Other (See Below) Hematologic History: Reports: None, Anemia Immunologic History: Reports: None Oncologic (Cancer) History: Reports: Colon Dermatologic History: Reports: None - Infectious Disease History Infectious Disease History: Reports: Chicken Pox, Measles - Past Surgical History HEENT Surgical History: Reports: Adenoidectomy, Tonsillectomy Cardiovascular Surgical History: Reports: Percutaneous Transluminal Angioplasty , Valve Replacement GI Surgical History: Reports: Appendectomy, Colonoscopy, EGD, Hernia Repair/ Other, Other (See Below) Female Surgical History: Reports: D&C Neurological Surgical History: Reports: None Musculoskeletal Surgical History: Reports: ORIF Social & Family History - Family History Family Medical History: Noncontributory HEENT: Reports: Cataract Cardiac: Reports: CAD, Heart Failure, [place] Other Cardiac Family History: brother had bypass and mother had a heart attack Respiratory: Reports: COPD GI: Reports: Cholelithiasis, GERD : Reports: UTI, Recurrent Other Family History: sister gets lots of UTI OBGYN: Reports: , Other (See Below) Other OBGYN Family History: mom miscarried Musculoskeletal: Reports: Arthritis, Back pain, Chronic, Gout Dermatologic: Reports: Eczema Other Dermatologic Family History: mom had eczema - Tobacco Use Smoking Status *Q: Unknown Ever Smoked Second Hand Smoke Exposure: Yes - Caffeine Use Caffeine Use: Reports: Coffee Other Caffeine Use: 1 cup daily - Recreational Drug Use Recreational Drug Use: No - Living Situation & Occupation Living situation: Reports: Occupation: Retired ED ROS GENERAL - Review of Systems Review Of Systems: ROS reveals no pertinent complaints other than HPI. ED EXAM, GENERAL - Physical Exam Exam: See Below Exam Limited By: No Limitations General Appearance: Alert, WD/WN, No Apparent Distress Eye Exam: Bilateral Eye: EOMI, PERRL Ears: Normal External Exam, Normal Canal, Hearing Grossly Normal, Normal TMs Nose: Normal Inspection, Normal Mucosa, No Blood Throat/Mouth: Normal Inspection, Normal Lips, Normal Teeth, Normal Gums, Normal Oropharynx, Normal Voice, No Airway Compromise Head: Atraumatic, Normocephalic Neck: Normal Inspection, Supple, Non-Tender, Full Range of Motion Respiratory/Chest: No Respiratory Distress, Lungs Clear, Normal Breath Sounds, No Accessory Muscle Use, Chest Non-Tender Cardiovascular: Normal Peripheral Pulses, Regular Rate, Rhythm, No Edema, No Gallop, No JVD, No Murmur, No Rub Peripheral Pulses: 4+: Radial (L), Radial (R), Posterior Tibial (L), Posterior Tibial (R), Dorsalis Pedis (L), Dorsalis Pedis (R) GI/Abdominal: Normal Bowel Sounds, Soft, Non-Tender, No Organomegaly, No Distention, No Abnormal Bruit, No Mass (Female) Exam: Deferred Extremities: Normal Inspection, Normal Range of Motion, Non-Tender, Normal Capillary Refill, No Pedal Edema Neurological: Alert, Oriented, CN II-XII Intact, Normal Cognition, Normal Gait, Normal Reflexes, No Motor/Sensory Deficits Psychiatric: Normal Affect, Normal Mood Skin Exam: Warm, Dry, Intact, Normal Color, No Rash Lymphatic: No Adenopathy Course - Vital Signs Last Recorded V/S: Last Vital Signs Temp 98.3 F 01/26/19 01:10 Pulse 78 01/26/19 01:10 Resp 18 01/26/19 01:10 BP 132/70 01/26/19 01:10 Pulse Ox 92 L 01/26/19 01:10 - Orders/Labs/Meds Orders: Active Orders 24 hr Category Date Time Status EKG Documentation Completion [RC] URGENT Care 01/26/19 01:10 Active Labs: Laboratory Tests 01/26/19 01/26/19 01/26/19 Range/Units 01:32 01:32 01:32 WBC 10.9 H (5.0-10.0) 10^3/uL RBC 4.45 (4.2-5.4) 10^6/uL Hgb 12.7 (12.0-16.0) g/dL Hct 38.8 (37.0-47.0) % MCV 87.2 (80-100) fL MCH 28.5 (27.0-34.0) pg MCHC 32.7 L (33.0-35.0) g/dL Plt Count 274 (150-450) 10^3/uL Neut % (Auto) 72.3 (42.2-75.2) % Lymph % (Auto) 13.7 L (20.5-50.1) % [place] % (Auto) 10.6 H (2-8) % Eos % (Auto) 2.9 (1.0-3.0) % Baso % (Auto) 0.5 (0.0-1.0) % Sodium 138 (135-145) mmol/L Potassium 3.5 L (3.6-5.0) mmol/L Chloride 101 (101-111) mmol/L Carbon Dioxide 26.0 (21.0-31.0) mmol/L Anion Gap 14.5 BUN 19 H (7-18) mg/dL Creatinine 0.9 (0.6-1.3) mg/dL Est Cr Clr Drug Dosing 47.10 mL/min Estimated GFR (MDRD) > 60 BUN/Creatinine Ratio 21.11 Glucose 114 H (74-105) mg/dL Lactic Acid 0.7 (0.5-2.2) mmol/L Calcium 9.1 (8.4-10.2) mg/dl Total Bilirubin 0.5 (0.2-1.0) mg/dL AST 21 (10-42) IU/L ALT 14 (10-60) IU/L Alkaline Phosphatase 71 (42-121) IU/L Troponin I < 0.02 (0.00-0.02) ng/ml B-Natriuretic Peptide 64 (0-100) pg/ml Total Protein 7.4 (6.7-8.2) g/dl Albumin 3.9 (3.2-5.5) g/dl Globulin 3.5 Albumin/Globulin Ratio 1.11 Departure - Departure Time of Disposition: 02:35 Disposition: Home, Self-Care 01 Condition: Good Clinical Impression: Hypokalemia Instructions: Potassium Content of Foods Referrals: PCP,None [Ordering Only Provider] - Forms: ED Department Discharge Care Plan Goals: Reviewed labs results with patient. Troponin normal with an unremarkable EKG. Vital signs stable. CMP with K at 3.5. CBC with WBC of 10.9. Encouraged patient to eat foods rich in potassium. Follow up with PCP in one day or returned to the clinic if symptoms worsens. - My Orders Last 24 Hours: My Active Orders 01/26/19 01:10 EKG Documentation Completion [RC] URGENT - Assessment/Plan Last 24 Hours: My Active Orders 01/26/19 01:10 EKG Documentation Completion [RC] URGENT
[2019-01-26 02:01] LABS: ANION GAP 14.5; CHLORIDE,CL 101 mmol/L (101-111); SODIUM,NA 138 mmol/L (135-145)
== END 2019-01-26 03:05 | disposition home or self-care (01) ==
LOC: DL.ED 00:35
DX: E87.6 Hypokalemia (principal); J45.909 Unspecified asthma, uncomplicated; K21.9 Gastro-esophageal reflux disease without esophagitis; Z79.51 Long term (current) use of inhaled steroids; Z79.899 Other long term (current) drug therapy; Z79.82 Long term (current) use of aspirin; Z88.8 Allergy status to other drugs, medicaments and biological substances
CPT/HCPCS: 36415; 80053; 83605; 83880; 84484; 85025; 93005; 99285-25

== ENCOUNTER 2019-12-02 12:11 | Emergency (ER) | payer MEDICARE, BC ==
[2019-12-02 12:36] VITALS: BP 139/78; PULSE 96
--- NOTE | 2019-12-02 14:15 | EDM.PDOC ---
ED HPI GENERAL MEDICAL PROBLEM - General Chief Complaint: ENT Problem Stated Complaint: [id number] TROUBLE SWOLLOWING Time Seen by Provider: 12/02/19 13:45 Source of Information: Reports: Patient, RN History Limitations: Reports: No Limitations - History of Present Illness INITIAL COMMENTS - FREE TEXT/NARRATIVE: 71-year-old female with a history of acid reflux who presents to the ER with complaints of throat pain when she swallows food, or pills. Patient states she feels like her throat is getting swollen. She states she had seen her PCP 8 days ago and had a CT scan done but she does not know the results. She denies any nausea or vomiting at this time. She is taking Pepcid which is helping with the belching and omeprazole in the morning which helps with the acid reflux. She denies coughing up any blood at this time. She denies shortness of breath, chest pain,fevers, chills, abdominal pain, palpitations, or tarry stools at this time. Patient reports she has had multiple endoscopies and usually has to go to [facility] to have them done as most hospital did not have the right equally made for her. - Related Data Allergies Allergy/AdvReac Type Severity Reaction Status Date / Time promethazine HCl Allergy Severe Airway Verified 12/02/19 12:25 [From Phenergan] Tightness Tetanus Vaccines and Toxoid Allergy Rash Verified 12/02/19 12:25 [Tetanus Vaccines & Toxoid] Home Meds: Home Meds Albuterol [Ventolin HFA] 2 puff INH Q6HRRT PRN 06/27/13 [History] Aspirin [Ecotrin EC] 81 mg PO BEDTIME 06/27/13 [History] Furosemide 40 mg PO DAILY 06/27/13 [History] Nicotine [Nicotrol] 10 mg IH DAILY PRN 06/27/13 [History] Nitroglycerin [Nitrostat] 0.4 mg SL [id number] PRN 06/27/13 [History] Omeprazole 20 mg PO DAILY 06/27/13 [History] Roflumilast [Daliresp] 500 mcg PO .NOON 06/27/13 [History] Rosuvastatin Calcium [Crestor] 20 mg PO BEDTIME 06/27/13 [History] Tiotropium [Spiriva Handihaler] 18 mcg INH DAILY 06/27/13 [History] Albuterol [Proventil Neb Soln] 2.5 mg NEB Q4HR PRN 06/22/14 [History] Montelukast Sodium [Singulair] 10 mg PO DAILY 06/22/14 [History] allopurinoL [Zyloprim] 300 mg PO DAILY 06/22/14 [History] carvediloL [Carvedilol] 25 mg PO BID 06/22/14 [History] Potassium Chloride 20 meq PO TID 04/11/15 [History] Fluticasone Propion/Salmeterol [Advair Hfa 230-21 Mcg Inhaler] 1 puff IH BID 09/24/15 [History] Acetaminophen [Tylenol Arthritis Pain] 650 mg PO Q8H PRN 11/08/17 [History] Past Medical History HEENT History: Reports: Epistaxis, Impaired Vision, Other (See Below) Cardiovascular History: Reports: Afib, Aneurysm, CAD, Heart Valve Replacement, High Cholesterol, Hypertension, Pacemaker, PVD Other Cardiovascular History: aortic stenosis Respiratory History: Reports: Asthma, COPD, SOB Gastrointestinal History: Reports: Diverticulosis, GERD, Hiatal Hernia, PUD, Other (See Below) Genitourinary History: Reports: None 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: 3 nvd Musculoskeletal History: Reports: Arthritis, Back Pain, Chronic, Fracture, Fibromyalgia, Gout, Neck Pain, Chronic, Osteoarthritis, Other (See Below) Neurological History: Reports: Vertigo Psychiatric History: Reports: Anxiety Endocrine/Metabolic History: Reports: None, Other (See Below) Hematologic History: Reports: None, Anemia Immunologic History: Reports: None Oncologic (Cancer) History: Reports: Colon Dermatologic History: Reports: None - Infectious Disease History Infectious Disease History: Reports: Chicken Pox, Measles - Past Surgical History HEENT Surgical History: Reports: Adenoidectomy, Tonsillectomy Cardiovascular Surgical History: Reports: Percutaneous Transluminal Angioplasty, Valve Replacement GI Surgical History: Reports: Appendectomy, Colonoscopy, EGD, Hernia Repair/Other, Other (See Below) Female Surgical History: Reports: D&C Neurological Surgical History: Reports: None Musculoskeletal Surgical History: Reports: ORIF Social & Family History - Family History Family Medical History: Noncontributory HEENT: Reports: Cataract Cardiac: Reports: CAD, Heart Failure, [place] Other Cardiac Family History: brother had bypass and mother had a heart attack Respiratory: Reports: COPD GI: Reports: Cholelithiasis, GERD : Reports: UTI, Recurrent Other Family History: sister gets lots of UTI OBGYN: Reports: , Other (See Below) Other OBGYN Family History: mom miscarried Musculoskeletal: Reports: Arthritis, Back pain, Chronic, Gout Dermatologic: Reports: Eczema Other Dermatologic Family History: mom had eczema - Tobacco Use Smoking Status *Q: Never Smoker Second Hand Smoke Exposure: No - Caffeine Use Caffeine Use: Reports: Coffee Other Caffeine Use: 1 cup daily - Recreational Drug Use Recreational Drug Use: No - Living Situation & Occupation Living situation: Reports: Occupation: Retired ED ROS ENT - Review of Systems Review Of Systems: Comprehensive ROS is negative, except as noted in HPI. ED EXAM, ENT - Physical Exam Exam: See Below General Appearance: Alert, Anxious Nose: Normal Inspection, Normal Mucousa, No Blood Mouth/Throat: Normal Inspection, Normal Oropharynx Head: Atraumatic, Normocephalic Neck: Normal Inspection, Non-Tender, Full Range of Motion, Other (a small lump noted on the right side of the neck) Respiratory/Chest: No Respiratory Distress, Lungs Clear, Normal Breath Sounds, No Accessory Muscle Use, Chest Non-Tender Cardiovascular: Normal Peripheral Pulses, Regular Rate, Rhythm GI/Abdominal: Normal Bowel Sounds, Soft, Non-Tender, No Organomegaly, No Distention, No Abnormal Bruit, No Mass Psychiatric: Anxious Skin: Warm Course - Vital Signs Last Recorded V/S: Last Vital Signs Temp 98.4 F 12/02/19 12:25 Pulse 96 12/02/19 12:25 Resp 16 12/02/19 12:25 BP 139/78 12/02/19 12:25 Pulse Ox 93 L 12/02/19 12:25 - Re-Assessments/Exams Free Text/Narrative Re-Assessment/Exam: 12/02/19 14:11 Reviewed exam findings and CT results with patient. Encouraged her to follow up with PCP for a referral for an Endoscopy. Patient states she has to go to [facility] and it takes months. She also adds she had an endoscopy two years ago and is due for one in a year. She was frustrated. Departure - Departure Time of Disposition: 14:13 Disposition: Refer to Observation Clinical Impression: Pain in throat GERD (gastroesophageal reflux disease) Qualifiers: Esophagitis presence: without esophagitis Qualified Code(s): K21.9 - Gastro- esophageal reflux disease without esophagitis - Discharge Information Instructions: Food Choices for Gastroesophageal Reflux Disease, Adult, Food Choices for Gastroesophageal Reflux Disease, Adult, [id number] Forms: ED Department Discharge Additional Instructions: Follow up with PCP for an endoscope referral. Sepsis Event Note (ED) - Evaluation Sepsis Screening Result: No Definite Risk - Focused Exam Vital Signs: Vital Signs Temp Pulse Resp BP Pulse Ox 12/02/19 12:25 98.4 F 96 16 139/78 93 L
== END 2019-12-02 14:23 | disposition home or self-care (01) ==
LOC: DL.ED 12:11
DX: K21.9 Gastro-esophageal reflux disease without esophagitis (principal); R07.0 Pain in throat; I10 Essential (primary) hypertension; I48.91 Unspecified atrial fibrillation; I25.10 Atherosclerotic heart disease of native coronary artery without angina pectoris; J44.9 Chronic obstructive pulmonary disease, unspecified; M10.9 Gout, unspecified; Z90.49 Acquired absence of other specified parts of digestive tract; Z88.7 Allergy status to serum and vaccine; Z88.8 Allergy status to other drugs, medicaments and biological substances; Z79.899 Other long term (current) drug therapy
CPT/HCPCS: 99282; 99283

== ENCOUNTER 2020-05-01 04:19 | Emergency (ER) | payer MEDICARE, BC ==
--- NOTE | 2020-05-01 04:55 | EDM.PDOC ---
<Britney Perry - Last Filed: 05/01/20 05:32> ED HPI GENERAL MEDICAL PROBLEM - General Chief Complaint: Cardiovascular Problem Stated Complaint: AMBULANCE Time Seen by Provider: 05/01/20 04:19 Source of Information: Reports: Patient, EMS, EMS Notes Reviewed, RN, RN Notes Reviewed History Limitations: Reports: No Limitations - History of Present Illness INITIAL COMMENTS - FREE TEXT/NARRATIVE: Patient is a 80-year-old female who presents to ER per [facility] with complaint of chest pain and back pain that awoke her from sleep at about 2: 20 AM. Patient states the entire upper back felt a burning sensation which she rated a 9/10. Patient states she took 1 nitroglycerin and within 5 minutes pain subsided. After this episode she did feel sweaty and diaphoretic. Denies any nausea or vomiting, denies radiation of the pain into the jaw or arms, neck. Patient is currently being treated with immunotherapy for lung cancer. Patient denies having an OH in the past, but states she has had an aortic valve replacement. Patient states symptoms have completely resolved at this time. 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 - Related Data Allergies Allergy/AdvReac Type Severity Reaction Status Date / Time promethazine HCl Allergy Severe Airway Verified 05/01/20 04:39 [From Phenergan] Tightness Tetanus Vaccines and Toxoid Allergy Rash Verified 05/01/20 04:39 [Tetanus Vaccines & Toxoid] Home Meds: Home Meds Albuterol [Ventolin HFA] 2 puff INH Q6HRRT PRN 06/27/13 [History] Aspirin [Ecotrin EC] 81 mg PO BEDTIME 06/27/13 [History] Furosemide 40 mg PO DAILY 06/27/13 [History] Nicotine [Nicotrol] 10 mg IH DAILY PRN 06/27/13 [History] Nitroglycerin [Nitrostat] 0.4 mg SL .[id number] PRN 06/27/13 [History] Omeprazole 20 mg PO DAILY 06/27/13 [History] Roflumilast [Daliresp] 500 mcg PO .NOON 06/27/13 [History] Rosuvastatin Calcium [Crestor] 20 mg PO BEDTIME 06/27/13 [History] Tiotropium [Spiriva Handihaler] 18 mcg INH DAILY 06/27/13 [History] Montelukast Sodium [Singulair] 10 mg PO BEDTIME 06/22/14 [History] allopurinoL [Zyloprim] 150 mg PO DAILY 06/22/14 [History] Potassium Chloride 40 meq PO BID 04/11/15 [History] Fluticasone Propion/Salmeterol [Advair Hfa 230-21 Mcg Inhaler] 2 puff IH BID 09/24/15 [History] Acetaminophen [Tylenol Extra Strength] 500 mg PO Q6H PRN 05/01/20 [History] Amoxicillin/Clavulanate K [Augmentin 600-42.9 MG/5 ML Susp] 600 mg PO BIDMEALS #100 ml 05/01/20 [Rx] Cmp-Lido/Diphen/Mylanta 10 ml PO QID PRN 05/01/20 [History] Famotidine 20 mg PO BID 05/01/20 [History] Folic Acid 1 mg PO DAILY 05/01/20 [History] carvediloL [Carvedilol] 12.5 mg PO BID 05/01/20 [History] Past Medical History HEENT History: Reports: Epistaxis, Impaired Vision Cardiovascular History: Reports: Afib, Aneurysm, CAD, Heart Valve Replacement, High Cholesterol, Hypertension, PVD Other Cardiovascular History: aortic stenosis Respiratory History: Reports: Asthma, COPD, SOB Gastrointestinal History: Reports: Diverticulosis, GERD, Hiatal Hernia, PUD, Other (See Below) Genitourinary History: Reports: None REFINISHER History: Reports: Other REFINISHER History: 3 nvd Musculoskeletal History: Reports: Arthritis, Back Pain, Chronic, Fracture, Fibromyalgia, Gout, Neck Pain, Chronic, Osteoarthritis Neurological History: Reports: Vertigo Psychiatric History: Reports: Anxiety Endocrine/Metabolic History: Reports: None Hematologic History: Reports: Anemia Immunologic History: Reports: None Oncologic (Cancer) History: Reports: Lung Dermatologic History: Reports: None - Infectious Disease History Infectious Disease History: Reports: Chicken Pox, Measles - Past Surgical History HEENT Surgical History: Reports: Adenoidectomy, Tonsillectomy Cardiovascular Surgical History: Reports: Percutaneous Transluminal Angioplasty, Valve Replacement Other Cardiovascular Surgeries/Procedures: aortic valve replacement 01/18/2016 GI Surgical History: Reports: Appendectomy, Colonoscopy, EGD, Hernia Repair/Other, Other (See Below) Other GI Surgeries/Procedures: 14 inches of colon removed Female Surgical History: Reports: D&C Neurological Surgical History: Reports: None Musculoskeletal Surgical History: Reports: ORIF Social & Family History - Family History Family Medical History: No Pertinent Family History HEENT: Reports: Cataract Cardiac: Reports: CAD, Heart Failure, OH Other Cardiac Family History: brother had bypass and mother had a heart attack Respiratory: Reports: COPD GI: Reports: Cholelithiasis, GERD : Reports: UTI, Recurrent Other Family History: sister gets lots of UTI OBGYN: Reports: , Other (See Below) Other OBGYN Family History: mom miscarried Musculoskeletal: Reports: Arthritis, Back pain, Chronic, Gout Dermatologic: Reports: Eczema Other Dermatologic Family History: mom had eczema - Tobacco Use Tobacco Use Status *Q: Former Tobacco User Used Tobacco, but Quit: Yes Month/Year Tobacco Last Used: quit 22 years ago Second Hand Smoke Exposure: No - Caffeine Use Caffeine Use: Reports: Coffee Other Caffeine Use: 1 cup daily - Recreational Drug Use Recreational Drug Use: No - Living Situation & Occupation Living situation: Reports: Occupation: Retired ED ROS GENERAL - Review of Systems Review Of Systems: Comprehensive ROS is negative, except as noted in HPI. ED EXAM, GENERAL - Physical Exam Exam: See Below Exam Limited By: No Limitations General Appearance: Alert, WD/WN, No Apparent Distress, Anxious, Thin Eye Exam: Bilateral Eye: EOMI, Normal Inspection Ears: Normal External Exam, Hearing Grossly Normal Nose: Normal Inspection Throat/Mouth: Normal Inspection, Normal Voice, No Airway Compromise Head: Atraumatic, Normocephalic Neck: Normal Inspection, Supple, Non-Tender, Full Range of Motion Respiratory/Chest: No Respiratory Distress, No Accessory Muscle Use, Chest Non- Tender, Decreased Breath Sounds, Crackles (bases bilaterally) Cardiovascular: Normal Peripheral Pulses, Regular Rate, Rhythm, No Edema, No Gallop, No JVD, No Murmur, No Rub Peripheral Pulses: 2+: Radial (L), Radial (R), Dorsalis Pedis (L), Dorsalis Pedis (R) GI/Abdominal: Normal Bowel Sounds, Soft, Non-Tender, No Organomegaly, No Distention (Female) Exam: Deferred Rectal (Female) Exam: Deferred Back Exam: Normal Inspection, Full Range of Motion, NT Extremities: Normal Inspection, Normal Range of Motion, Non-Tender, Normal Capillary Refill, No Pedal Edema Neurological: Alert, Oriented, CN II-XII Intact, Normal Cognition, Normal Gait, Normal Reflexes, No Motor/Sensory Deficits Psychiatric: Normal Affect, Normal Mood, Anxious Skin Exam: Warm, Dry, Intact, Normal Color, No Rash Lymphatic: No Adenopathy Course - Radiology Interpretation Free Text/Narrative:: Chest xray: PROCEDURE INFORMATION: Exam: XR Chest, 1 View Exam date and time: 05/01/2020 4:50 AM Age: 80 years old Clinical indication: Other: Chest pain TECHNIQUE: Imaging protocol: XR of the chest Views: 1 view. COMPARISON: CT Chest w Cont 12/15/2019 10:45 AM and chest x-ray 11-08-2017 FINDINGS: Lungs: The lungs remain hyperinflated. Mild interval bibasilar lung opacific ation. The lungs are otherwise clear. Pleural space: No pneumothorax. No significant pleural effusion. Stable blunted left CP angle is likely scar. Heart/Mediastinum: The heart and mediastinum appear normal. Bones/joints: Sternotomy. The visualized bones are intact without fracture or focal osseous lesion. The thoracic spine is underpenetrated limiting evaluation. IMPRESSION: Hyperinflation is stable. Subtle bibasilar lung parenchymal opacities may reflect small infiltrates, mild edema and or subsegmental atelectasis. Thank you for allowing us to participate in the care of your patient. Dictated and Authenticated by: Paula Ramirez MD 05/01/2020 5:18 AM Central Time ([place] & [place]) See rad report - Re-Assessments/Exams Free Text/Narrative Re-Assessment/Exam: 05/01/20 05:28 Patient states she is having some nausea and a headache. Ordered Zofran and Tylenol but patient declined taking them at this time. Discussed labs and diagnostics with the patient. Discussed the possibility of a developing pneumonia with the patient and will cover her with antibiotics at this time. Patient will be observed for a few more hours and troponin and EKG will be repeated. Patient care will be turned over to TAYLOR Berman at 0700 shift change. Departure - Departure Disposition: Home, Self-Care Clinical Impression: Nonspecific chest pain, Bronchitis Prescriptions: Amoxicillin/Clavulanate K [Augmentin 600-42.9 MG/5 ML Susp] 600 mg PO BIDMEALS #100 ml Instructions: Nonspecific Chest Pain, Adult, [id number], Acute Bronchitis, Adult, [id number] Forms: ED Department Discharge Care Plan Goals: The patient was advised of the examination, lab, x-ray, EKG, repeat EKG and repeat lab results during the visit. The patient was discharged with a script for Augmentin. The patient was advised to follow-up with her primary care facility for continued evaluation and further management. If the patient has any additional symptoms or concerns, the patient should either return to the emergency department or visit her primary care facility. Sepsis Event Note (ED) - Evaluation Sepsis Screening Result: No Definite Risk <Sukhi Salcedo - Last Filed: 05/01/20 09:20> Course - Vital Signs Last Recorded V/S: Last Vital Signs Temp 37.2 C 05/01/20 06:30 Pulse 80 05/01/20 07:00 Resp 16 05/01/20 06:30 BP 131/57 L 05/01/20 07:00 Pulse Ox 96 05/01/20 07:00 - Orders/Labs/Meds Orders: Active Orders 24 hr Category Date Time Status EKG Documentation Completion [RC] STAT Care 05/01/20 04:20 Active EKG Documentation Completion [RC] STAT Care 05/01/20 08:30 Active Labs: Laboratory Tests 05/01/20 05/01/20 05/01/20 Range/Units 04:34 04:34 04:34 WBC 8.7 (5.0-10.0) 10^3/uL RBC 4.28 (4.2-5.4) 10^6/uL Hgb 12.9 (12.0-16.0) g/dL Hct 38.7 (37.0-47.0) % MCV 90.4 D (80-100) fL MCH 30.1 (27.0-34.0) pg MCHC 33.3 (33.0-35.0) g/dL Plt Count 257 (150-450) 10^3/uL Neut % (Auto) 73.4 (42.2-75.2) % Lymph % (Auto) 15.0 L (20.5-50.1) % Ceiba % (Auto) 10.6 H (2-8) % Eos % (Auto) 0.7 L (1.0-3.0) % Baso % (Auto) 0.3 (0.0-1.0) % PT 10.3 (9.0-12.0) SEC INR 1.1 (0.9-1.2) Sodium 137 (136-145) mmol/L Potassium 3.8 (3.5-5.1) mmol/L Chloride 100 (98-107) mmol/L Carbon Dioxide 30 (21-32) mmol/L Anion Gap 10.8 (7-13) mEq/L BUN 13 (7-18) mg/dL Creatinine 0.81 (0.55-1.02) mg/dL Est Cr Clr Drug Dosing 40.83 mL/min Estimated GFR (MDRD) > 60 BUN/Creatinine Ratio 16.0 (No establ ref range) Glucose 94 (74-99) mg/dL Calcium 9.2 (8.5-10.1) mg/dL Total Bilirubin 0.2 (0.2-1.0) mg/dL AST 22 (15-37) U/L ALT 24 (14-59) U/L Alkaline Phosphatase 85 (46-116) U/L Troponin I 0.017 (0.000-0.056) ng/mL Total Protein 7.6 (6.4-8.2) g/dL Albumin 3.8 (3.4-5.0) g/dL Globulin 3.8 Albumin/Globulin Ratio 1.0 //21 Range/Units 08:36 WBC (5.0-10.0) 10^3/uL RBC (4.2-5.4) 10^6/uL Hgb (12.0-16.0) g/dL Hct (37.0-47.0) % MCV (80-100) fL MCH (27.0-34.0) pg MCHC (33.0-35.0) g/dL Plt Count (150-450) 10^3/uL Neut % (Auto) (42.2-75.2) % Lymph % (Auto) (20.5-50.1) % Ceiba % (Auto) (2-8) % Eos % (Auto) (1.0-3.0) % Baso % (Auto) (0.0-1.0) % PT (9.0-12.0) SEC INR (0.9-1.2) Sodium (136-145) mmol/L Potassium (3.5-5.1) mmol/L Chloride (98-107) mmol/L Carbon Dioxide (21-32) mmol/L Anion Gap (7-13) mEq/L BUN (7-18) mg/dL Creatinine (0.55-1.02) mg/dL Est Cr Clr Drug Dosing mL/min Estimated GFR (MDRD) BUN/Creatinine Ratio (No establ ref range) Glucose (74-99) mg/dL Calcium (8.5-10.1) mg/dL Total Bilirubin (0.2-1.0) mg/dL AST (15-37) U/L ALT (14-59) U/L Alkaline Phosphatase (46-116) U/L Troponin I < 0.017 (0.000-0.056) ng/mL Total Protein (6.4-8.2) g/dL Albumin (3.4-5.0) g/dL Globulin Albumin/Globulin Ratio Meds: Medications Discontinued Medications Generic Name Dose Route Start Last Admin Trade Name Freq PRN Reason Stop Dose Admin Acetaminophen 650 mg 05/01/20 05:24 Tylenol PO 05/01/20 05:25 NOW ONE Acetaminophen 650 mg 05/01/20 08:09 05/01/20 08:17 Tylenol PO 05/01/20 08:10 650 mg NOW ONE Administration Ondansetron HCl 4 mg 05/01/20 05:24 Zofran IV 05/01/20 05:25 ONETIME ONE Departure - Departure Time of Disposition: 09:17 Condition: Fair Sepsis Event Note (ED) - Focused Exam Vital Signs: Vital Signs Temp Pulse Resp BP BP Pulse Ox 05/01/20 07:00 80 131/57 L 96 05/01/20 06:30 37.2 C 78 16 127/57 L 96 05/01/20 06:00 69 139/63 98 05/01/20 05:40 36.9 C 75 18 134/59 L 95 05/01/20 04:19 36.4 C 77 18 145/60 H 95
[2020-05-01 05:02] LABS: ANION GAP 10.8 mEq/L (7-13); CHLORIDE,CL 100 mmol/L (98-107); SODIUM,NA 137 mmol/L (136-145)
--- NOTE | 2020-05-01 05:18 | CR ---
PROCEDURE INFORMATION: Exam: XR Chest, 1 View Exam date and time: 05/01/2020 4:50 AM Age: 80 years old Clinical indication: Other: Chest pain TECHNIQUE: Imaging protocol: XR of the chest Views: 1 view. COMPARISON: CT Chest w Cont 12/15/2019 10:45 AM and chest x-ray 11-08-2017 FINDINGS: Lungs: The lungs remain hyperinflated. Mild interval bibasilar lung opacification. The lungs are otherwise clear. Pleural space: No pneumothorax. No significant pleural effusion. Stable blunted left CP angle is likely scar. Heart/Mediastinum: The heart and mediastinum appear normal. Bones/joints: Sternotomy. The visualized bones are intact without fracture or focal osseous lesion. The thoracic spine is underpenetrated limiting evaluation. IMPRESSION: Hyperinflation is stable. Subtle bibasilar lung parenchymal opacities may reflect small infiltrates, mild edema and or subsegmental atelectasis.
[2020-05-01] MEDS ORDERED: Acetaminophen 325 MG Tab PO ONE (05:24)
[2020-05-01] MEDS ORDERED: Ondansetron 4 MG/2 ML SDV IV ONE (05:24)
[2020-05-01 07:52] VITALS: BP 131/57; PULSE 80
[2020-05-01] MEDS: Acetaminophen 325 MG Tab PO ONE (08:17)
== END 2020-05-01 09:45 | disposition home or self-care (01) ==
LOC: DL.ED 04:19
DX: J40 Bronchitis, not specified as acute or chronic (principal); I48.91 Unspecified atrial fibrillation; I25.10 Atherosclerotic heart disease of native coronary artery without angina pectoris; E78.00 Pure hypercholesterolemia, unspecified; I10 Essential (primary) hypertension; J44.9 Chronic obstructive pulmonary disease, unspecified; K21.9 Gastro-esophageal reflux disease without esophagitis; M19.90 Unspecified osteoarthritis, unspecified site; Z87.891 Personal history of nicotine dependence; Z88.7 Allergy status to serum and vaccine; Z79.82 Long term (current) use of aspirin; Z79.899 Other long term (current) drug therapy; Z88.8 Allergy status to other drugs, medicaments and biological substances
CPT/HCPCS: 36415; 71045; 80053; 84484; 85025; 85610; 93005; 99283; 99285; A9270

== ENCOUNTER 2020-11-19 15:44 | Emergency (ER) | payer MEDICARE, BC ==
[2020-11-19] MEDS ORDERED: Meclizine 12.5 MG Tab PO ONE (15:45)
[2020-11-19 16:09] VITALS: BP 144/76; PULSE 75
--- NOTE | 2020-11-19 18:11 | EDM.PDOC ---
<Britney Perry - Last Filed: 11/20/20 23:31> ED HPI GENERAL MEDICAL PROBLEM - General Chief Complaint: General Stated Complaint: DIZZYNESS, RIGHT HAND NUMB, FEEL LIKE VOMITING Time Seen by Provider: 11/19/20 17:50 - Related Data Allergies Allergy/AdvReac Type Severity Reaction Status Date / Time promethazine HCl Allergy Severe Airway Verified 05/01/20 04:39 [From Phenergan] Tightness Tetanus Vaccines and Toxoid Allergy Rash Verified 05/01/20 04:39 [Tetanus Vaccines & Toxoid] Home Meds: Home Meds Albuterol [Ventolin HFA] 2 puff INH Q6HRRT PRN 06/27/13 [History] Aspirin [Ecotrin EC] 81 mg PO BEDTIME 06/27/13 [History] Furosemide 40 mg PO DAILY 06/27/13 [History] Nicotine [Nicotrol] 10 mg IH DAILY PRN 06/27/13 [History] Nitroglycerin [Nitrostat] 0.4 mg SL .[id number] PRN 06/27/13 [History] Omeprazole 20 mg PO DAILY 06/27/13 [History] Roflumilast [Daliresp] 500 mcg PO .NOON 06/27/13 [History] Rosuvastatin Calcium [Crestor] 20 mg PO BEDTIME 06/27/13 [History] Tiotropium [Spiriva Handihaler] 18 mcg INH DAILY 06/27/13 [History] Montelukast Sodium [Singulair] 10 mg PO BEDTIME 06/22/14 [History] allopurinoL [Zyloprim] 150 mg PO DAILY 06/22/14 [History] Potassium Chloride 40 meq PO BID 04/11/15 [History] Fluticasone Propion/Salmeterol [Advair Hfa 230-21 Mcg Inhaler] 2 puff IH BID 09/24/15 [History] Acetaminophen [Tylenol Extra Strength] 500 mg PO Q6H PRN 05/01/20 [History] Amoxicillin/Clavulanate K [Augmentin 600-42.9 MG/5 ML Susp] 600 mg PO BIDMEALS #100 ml 05/01/20 [Rx] Cmp-Lido/Diphen/Mylanta 10 ml PO QID PRN 05/01/20 [History] Famotidine 20 mg PO BID 05/01/20 [History] Folic Acid 1 mg PO DAILY 05/01/20 [History] carvediloL [Carvedilol] 12.5 mg PO BID 05/01/20 [History] ED ROS GENERAL - Review of Systems Review Of Systems: Comprehensive ROS is negative, except as noted in HPI. Departure - Departure Time of Disposition: 19:38 Disposition: Home, Self-Care 01 Clinical Impression: History of lung cancer, Dizziness, Nausea - Discharge Information Instructions: Nausea, Adult Referrals: Kat Lake NP [Primary Care Provider] - Forms: ED Department Discharge Additional Instructions: Drink plenty of water RX: Meclizine 12.5 mg 1-2 tabs every 8 hours as needed for dizziness Follow up with your primary care facility Follow up with Physical Therapy for evaluation and treatment for Vertigo if continues Sit and rest when episodes occur <Erica Oharae - Last Filed: 11/28/20 11:52> ED HPI GENERAL MEDICAL PROBLEM - General Source of Information: Reports: Patient, RN History Limitations: Reports: No Limitations - History of Present Illness INITIAL COMMENTS - FREE TEXT/NARRATIVE: Audrey is a 80 y/o female with history of lung cancer, currently receiving immunotherapy, who presents to the ED via personal vehicle with complaints of dizziness, right hand numbness, and nausea. The patient reports she has each of these symptoms chronically due to her medications and cervicogenic changes, however she is concerned as his symptoms began more pronounced today while she was up walking around her apartment. She denies falls or injury. She denies changes to her medications or diet; she is due to receive her next round of immunotherapy in December. She does attest to recent illness and is currently being treated for an upper respiratory infection with Doxycycline and a pulmonary burst. She denies fever, shaking chills, chest pain, palpitations, vomiting, constipation, or diarrhea. Past Medical History HEENT History: Reports: Epistaxis, Impaired Vision Cardiovascular History: Reports: Afib, Aneurysm, CAD, Heart Valve Replacement, High Cholesterol, Hypertension, PVD Other Cardiovascular History: aortic stenosis Respiratory History: Reports: Asthma, COPD, SOB Gastrointestinal History: Reports: Diverticulosis, GERD, Hiatal Hernia, PUD, Other (See Below) Genitourinary History: Reports: None SCRATCHER TENDER History: Reports: Other SCRATCHER TENDER History: 3 nvd Musculoskeletal History: Reports: Arthritis, Back Pain, Chronic, Fracture, Fibromyalgia, Gout, Neck Pain, Chronic, Osteoarthritis Neurological History: Reports: Vertigo Psychiatric History: Reports: Anxiety Endocrine/Metabolic History: Reports: None Hematologic History: Reports: Anemia Immunologic History: Reports: None Oncologic (Cancer) History: Reports: Lung Dermatologic History: Reports: None - Infectious Disease History Infectious Disease History: Reports: Chicken Pox, Measles - Past Surgical History HEENT Surgical History: Reports: Adenoidectomy, Tonsillectomy Cardiovascular Surgical History: Reports: Percutaneous Transluminal Angioplasty, Valve Replacement Other Cardiovascular Surgeries/Procedures: aortic valve replacement 01/18/2016 GI Surgical History: Reports: Appendectomy, Colonoscopy, EGD, Hernia Repair/Other, Other (See Below) Other GI Surgeries/Procedures: 14 inches of colon removed Female Surgical History: Reports: D&C Neurological Surgical History: Reports: None Musculoskeletal Surgical History: Reports: ORIF Social & Family History - Family History Family Medical History: No Pertinent Family History HEENT: Reports: Cataract Cardiac: Reports: CAD, Heart Failure, [place] Other Cardiac Family History: brother had bypass and mother had a heart attack Respiratory: Reports: COPD GI: Reports: Cholelithiasis, GERD : Reports: UTI, Recurrent Other Family History: sister gets lots of UTI OBGYN: Reports: , Other (See Below) Other OBGYN Family History: mom miscarried Musculoskeletal: Reports: Arthritis, Back pain, Chronic, Gout Dermatologic: Reports: Eczema Other Dermatologic Family History: mom had eczema - Tobacco Use Tobacco Use Status *Q: Former Tobacco User Used Tobacco, but Quit: Yes Month/Year Tobacco Last Used: 04/1999 - Caffeine Use Caffeine Use: Reports: Coffee Other Caffeine Use: 1 cup daily - Recreational Drug Use Recreational Drug Use: No - Living Situation & Occupation Living situation: Reports: Occupation: Retired ED ROS GENERAL - Review of Systems Review Of Systems: Comprehensive ROS is negative, except as noted in HPI. ED EXAM, GENERAL - Physical Exam Exam: See Below Exam Limited By: No Limitations General Appearance: Alert, Anxious, Thin, Other (Chronically ill-appearing elderly female) Eye Exam: Bilateral Eye: EOMI, Normal Inspection, PERRL (2mm) Ears: Normal External Exam, Normal Canal, Hearing Grossly Normal, Normal TMs Ear Exam: Bilateral Ear: Auricle Normal, Canal Normal, TM normal Nose: Normal Inspection, Normal Mucosa, No Blood Throat/Mouth: Normal Inspection, Normal Oropharynx, Normal Voice, No Airway Compromise Head: Atraumatic, Normocephalic Neck: Normal Inspection, Supple, Full Range of Motion, Tender Lateral (Muscle tightness). No: Lymphadenopathy (L), Lymphadenopathy (R), Tender Midline Respiratory/Chest: No Respiratory Distress, Lungs Clear, Normal Breath Sounds, No Accessory Muscle Use, Chest Non-Tender Cardiovascular: Normal Peripheral Pulses, Regular Rate, Rhythm, No Edema, No Gallop, No JVD, No Murmur, No Rub Peripheral Pulses: 2+: Radial (L), Radial (R) GI/Abdominal: Normal Bowel Sounds, Soft, Non-Tender, No Distention, No Abnormal Bruit, No Mass, Pelvis Stable (Female) Exam: Deferred Rectal (Female) Exam: Deferred Back Exam: Normal Inspection, Full Range of Motion Neurological: Alert, Oriented, CN II-XII Intact, Normal Cognition, Normal Gait, Normal Reflexes, No Motor/Sensory Deficits. No: Memory Loss Remote Events, Memory Loss Recent Events, Abnormal Gait, Abnormal Reflexes Psychiatric: Normal Affect, Anxious Skin Exam: Warm, Dry, Intact, Normal Color, No Rash. No: Cyanosis, Ecchymosis, Erythema, Jaundice, Mottled, Pallor, Petechiae Lymphatic: No Adenopathy #1 Interpretation EKG Date: 11/19/20 Time: 18:26 Rhythm: NSR Rate (Beats/Min): 72 [place]: Normal P-Wave: Present QRS: Normal ST-T: Normal QT: Normal Comparison: Change From Previous EKG (Comapred to 05-01-20) EKG Interpretation Comments: NSR; No evidence of acute myocardial ischemia Course - Vital Signs Last Recorded V/S: Last Vital Signs Temp 98.0 F 11/19/20 16:04 Pulse 75 11/19/20 16:04 Resp 20 11/19/20 16:04 BP 144/76 H 11/19/20 16:04 Pulse Ox 94 L 11/19/20 16:04 - Orders/Labs/Meds Labs: Laboratory Tests 11/19/20 11/19/20 11/19/20 Range/Units 17:32 17:32 18:13 WBC 10.7 H (5.0-10.0) 10^3/uL RBC 4.72 (4.2-5.4) 10^6/uL Hgb 13.7 (12.0-16.0) g/dL Hct 41.3 (37.0-47.0) % MCV 87.5 (80-100) fL MCH 29.0 (27.0-34.0) pg MCHC 33.2 (33.0-35.0) g/dL Plt Count 277 (150-450) 10^3/uL Neut % (Auto) 67.9 (42.2-75.2) % Lymph % (Auto) 18.4 L (20.5-50.1) % Story % (Auto) 10.8 H (2-8) % Eos % (Auto) 2.5 (1.0-3.0) % Baso % (Auto) 0.4 (0.0-1.0) % Sodium (136-145) mmol/L Potassium (3.5-5.1) mmol/L Chloride (98-107) mmol/L Carbon Dioxide (21-32) mmol/L Anion Gap (7-13) mEq/L BUN (7-18) mg/dL Creatinine (0.55-1.02) mg/dL Est Cr Clr Drug Dosing mL/min Estimated GFR (MDRD) BUN/Creatinine Ratio (No establ ref range) Glucose (70-99) mg/dL Lactic Acid (0.4-2.0) mmol/L Calcium (8.5-10.1) mg/dL Magnesium (1.8-2.4) mg/dL Total Bilirubin (0.2-1.0) mg/dL AST (15-37) U/L ALT (14-59) U/L Alkaline Phosphatase (46-116) U/L Troponin I High Sens (<=51) pg/mL C-Reactive Protein (0.0-0.9) mg/dL Total Protein (6.4-8.2) g/dL Albumin (3.4-5.0) g/dL Globulin Albumin/Globulin Ratio Urine Color Light yellow (YELLOW) Urine Appearance Clear (CLEAR) Urine pH 7.0 (5.0-9.0) Ur Specific [place] 1.020 (1.005-1.030) Urine Protein Negative (NEGATIVE) Urine Glucose (UA) Negative (NEGATIVE) Urine Ketones Negative (NEGATIVE) Urine Occult Blood Negative (NEGATIVE) Urine Nitrite Negative (NEGATIVE) Urine Bilirubin Negative (NEGATIVE) Urine Urobilinogen 0.2 (0.2-1.0) mg/dL Ur Leukocyte Esterase Negative (NEGATIVE) Urine Opiates Screen Negative (NEGATIVE) Ur Oxycodone Screen Negative (NEGATIVE) Urine Methadone Screen Negative (NEGATIVE) Ur Barbiturates Screen Negative (NEGATIVE) U Tricyclic Antidepress Negative (NEGATIVE) Ur Phencyclidine Scrn Negative (NEGATIVE) Ur Amphetamine Screen Negative (NEGATIVE) U Methamphetamines Scrn Negative (NEGATIVE) Urine MDMA Screen Negative (NEGATIVE) U Benzodiazepines Scrn Negative (NEGATIVE) Urine Cocaine Screen Negative (NEGATIVE) U Marijuana (THC) Screen Negative (NEGATIVE) Ethyl Alcohol (0) mg/dL 11/19/20 11/19/20 Range/Units 18:13 18:13 WBC (5.0-10.0) 10^3/uL RBC (4.2-5.4) 10^6/uL Hgb (12.0-16.0) g/dL Hct (37.0-47.0) % MCV (80-100) fL MCH (27.0-34.0) pg MCHC (33.0-35.0) g/dL Plt Count (150-450) 10^3/uL Neut % (Auto) (42.2-75.2) % Lymph % (Auto) (20.5-50.1) % Story % (Auto) (2-8) % Eos % (Auto) (1.0-3.0) % Baso % (Auto) (0.0-1.0) % Sodium 134 L (136-145) mmol/L Potassium 3.4 L (3.5-5.1) mmol/L Chloride 94 L (98-107) mmol/L Carbon Dioxide 31 (21-32) mmol/L Anion Gap 12.4 (7-13) mEq/L BUN 12 (7-18) mg/dL Creatinine 0.66 (0.55-1.02) mg/dL Est Cr Clr Drug Dosing 54.24 mL/min Estimated GFR (MDRD) > 60 BUN/Creatinine Ratio 18.2 (No establ ref range) Glucose 103 H (70-99) mg/dL Lactic Acid 0.5 (0.4-2.0) mmol/L Calcium 9.1 (8.5-10.1) mg/dL Magnesium 1.8 (1.8-2.4) mg/dL Total Bilirubin 0.4 (0.2-1.0) mg/dL AST 20 (15-37) U/L ALT 32 (14-59) U/L Alkaline Phosphatase 110 (46-116) U/L Troponin I High Sens 22 (<=51) pg/mL C-Reactive Protein < 0.2 (0.0-0.9) mg/dL Total Protein 7.8 (6.4-8.2) g/dL Albumin 3.9 (3.4-5.0) g/dL Globulin 3.9 Albumin/Globulin Ratio 1.0 Urine Color (YELLOW) Urine Appearance (CLEAR) Urine pH (5.0-9.0) Ur Specific [place] (1.005-1.030) Urine Protein (NEGATIVE) Urine Glucose (UA) (NEGATIVE) Urine Ketones (NEGATIVE) Urine Occult Blood (NEGATIVE) Urine Nitrite (NEGATIVE) Urine Bilirubin (NEGATIVE) Urine Urobilinogen (0.2-1.0) mg/dL Ur Leukocyte Esterase (NEGATIVE) Urine Opiates Screen (NEGATIVE) Ur Oxycodone Screen (NEGATIVE) Urine Methadone Screen (NEGATIVE) Ur Barbiturates Screen (NEGATIVE) U Tricyclic Antidepress (NEGATIVE) Ur Phencyclidine Scrn (NEGATIVE) Ur Amphetamine Screen (NEGATIVE) U Methamphetamines Scrn (NEGATIVE) Urine MDMA Screen (NEGATIVE) U Benzodiazepines Scrn (NEGATIVE) Urine Cocaine Screen (NEGATIVE) U Marijuana (THC) Screen (NEGATIVE) Ethyl Alcohol < 3 (0) mg/dL Meds: Medications Discontinued Medications Generic Name Dose Route Start Last Admin Trade Name Freq PRN Reason Stop Dose Admin Meclizine HCl Confirm 11/19/20 19:40 11/19/20 19:48 Meclizine 12.5 Mg Tab Administered 11/19/20 19:41 Not Given Dose 100 mg .ROUTE .STK-MED ONE Meclizine HCl 25 mg 11/19/20 15:45 Meclizine 12.5 Mg Tab PO 11/19/20 15:46 .STK-MED ONE - Radiology Interpretation Free Text/Narrative:: [facility] Final Radiology Report Call: [phone] assistance Online chat: [email or web address] Name: AUDREY GANDHI Age: 80Years F Date: 11/19/2020 SSN: -- : [id number] Study: CT HEAD WO CONT Requesting Physician: Erica Ohara Images: 133 Addl Studies: Provided Clinical History: Persistent vertigo Contrast: Without Contrast Medium: Contrast Amount: Contrast Method: Page 1 of 2 PROCEDURE INFORMATION: Exam: CT Head Without Contrast Exam date and time: 11/19/2020 6:17 PM Age: 80 years old Clinical indication: Other: Persistnat vertigo; Patient HX: History of lung CA; Additional info: Persistent vertigo TECHNIQUE: Imaging protocol: Computed tomography of the head without contrast. Radiation optimization: All CT scans at this facility use at least one of these dose optimization techniques: automated exposure control; mA and/or kV adjustment per patient size (includes targeted exams where dose is matched to clinical indication); or iterative reconstruction. COMPARISON: CT Head wo Cont 01/20/2017 7:30 PM FINDINGS: Brain: There is mild diffuse parenchymal atrophy present. No acute hemorrhage. Chronic periventricular small vessel white matter disease. No mass effect. Cerebral ventricles: The ventricles are enlarged secondary to parenchymal volume loss. Paranasal sinuses: Near complete opacification of the left maxillary sinus. The remaining paranasal sinuses are clear. Mastoid air cells: Visualized mastoid air cells are well aerated. Bones/joints: Unremarkable. No acute fracture. Soft tissues: Unremarkable. IMPRESSION: 1. No acute intracranial abnormality. 2. Mild senescent change, not significantly changed from prior. 3. Left maxillary sinus disease. Thank you for allowing us to participate in the care of your patient. Dictated and Authenticated by: Kip Gage MD 11/19/2020 6:38 PM Central Time ([place] & [place]) - Re-Assessments/Exams Free Text/Narrative Re-Assessment/Exam: 11/19/20 Care of patient transferred to [facility] at 1900. Departure - Departure Time of Disposition: 19:12 Condition: Good - Discharge Information *PRESCRIPTION DRUG MONITORING PROGRAM REVIEWED*: Not Applicable *COPY OF PRESCRIPTION DRUG MONITORING REPORT IN PATIENT RONNA: Not Applicable Sepsis Event Note (ED) - Evaluation Sepsis Screening Result: No Definite Risk
[2020-11-19 18:22] LABS: AMPHETAMINES,URINE NEGATIVE (NEGATIVE); BARBITURATES,URINE NEGATIVE (NEGATIVE); BENZODIAZEPINE,URINE NEGATIVE (NEGATIVE); MDMA (ECSTASY), URINE NEGATIVE (NEGATIVE); METHADONE,URINE NEGATIVE (NEGATIVE); METHAMPHETAMINES,URINE NEGATIVE (NEGATIVE); OPIATES,URINE NEGATIVE (NEGATIVE); OXYCODONE,URINE NEGATIVE (NEGATIVE); PHENCYCLIDINE,URINE NEGATIVE (NEGATIVE); TCA,URINE NEGATIVE (NEGATIVE)
[2020-11-19 18:37] LABS: ANION GAP 12.4 mEq/L (7-13); CHLORIDE,CL 94 mmol/L (98-107); SODIUM,NA 134 mmol/L (136-145)
--- NOTE | 2020-11-19 18:38 | CT ---
PROCEDURE INFORMATION: Exam: CT Head Without Contrast Exam date and time: 11/19/2020 6:17 PM Age: 80 years old Clinical indication: Other: Persistnat vertigo; Patient HX: History of lung CA; Additional info: Persistent vertigo TECHNIQUE: Imaging protocol: Computed tomography of the head without contrast. Radiation optimization: All CT scans at this facility use at least one of these dose optimization techniques: automated exposure control; mA and/or kV adjustment per patient size (includes targeted exams where dose is matched to clinical indication); or iterative reconstruction. COMPARISON: CT Head wo Cont 01/20/2017 7:30 PM FINDINGS: Brain: There is mild diffuse parenchymal atrophy present. No acute hemorrhage. Chronic periventricular small vessel white matter disease. No mass effect. Cerebral ventricles: The ventricles are enlarged secondary to parenchymal volume loss. Paranasal sinuses: Near complete opacification of the left maxillary sinus. The remaining paranasal sinuses are clear. Mastoid air cells: Visualized mastoid air cells are well aerated. Bones/joints: Unremarkable. No acute fracture. Soft tissues: Unremarkable. IMPRESSION: 1. No acute intracranial abnormality. 2. Mild senescent change, not significantly changed from prior. 3. Left maxillary sinus disease.
[2020-11-19] MEDS: Meclizine 12.5 MG Tab ONE (19:48)
== END 2020-11-19 19:48 | disposition home or self-care (01) ==
LOC: DL.ED 15:44
DX: R42 Dizziness and giddiness (principal); R11.0 Nausea; I48.91 Unspecified atrial fibrillation; I25.10 Atherosclerotic heart disease of native coronary artery without angina pectoris; E78.00 Pure hypercholesterolemia, unspecified; I10 Essential (primary) hypertension; J44.9 Chronic obstructive pulmonary disease, unspecified; K21.9 Gastro-esophageal reflux disease without esophagitis; M10.9 Gout, unspecified; Z87.891 Personal history of nicotine dependence; Z85.118 Personal history of other malignant neoplasm of bronchus and lung; Z88.7 Allergy status to serum and vaccine; Z88.8 Allergy status to other drugs, medicaments and biological substances; Z79.82 Long term (current) use of aspirin; Z79.899 Other long term (current) drug therapy
CPT/HCPCS: 36415; 70450; 80053; 80305; 80307; 81003; 83605; 83735; 84484; 85025; 86140; 93005; 99284; A9270

== ENCOUNTER 2020-12-18 12:16 | Emergency (ER) | payer MEDICARE, BC ==
[2020-12-18 12:37] VITALS: BP 173/89; PULSE 80
--- NOTE | 2020-12-18 12:49 | EDM.PDOC ---
ED HPI GENERAL MEDICAL PROBLEM - General Chief Complaint: Cardiovascular Problem Stated Complaint: CANNOT CONTROL BLOOD PRESSURE Time Seen by Provider: 12/18/20 12:35 Source of Information: Reports: Patient History Limitations: Reports: No Limitations - History of Present Illness INITIAL COMMENTS - FREE TEXT/NARRATIVE: This 80 yo female patient reports to the ED due to an elevated blood pressure. The patient reports she was not feeling well yesterday. The patient reports she checked her blood pressure last night and had a high reading. The patient is very anxious during her visit. The patient reports she attempted to get into her primary care facility, but was advised that there were no appointments available. The patient was then advised to come to the ED for further evaluation and management. Onset Date: 12/17/20 Duration: Constant Location: Reports: Generalized Quality: Reports: Other Severity: Moderate Improves with: Reports: None Worsens with: Reports: None Context: Reports: Other Associated Symptoms: Reports: No Other Symptoms - Related Data Allergies Allergy/AdvReac Type Severity Reaction Status Date / Time promethazine HCl Allergy Severe Airway Verified 05/01/20 04:39 [From Phenergan] Tightness Tetanus Vaccines and Toxoid Allergy Rash Verified 05/01/20 04:39 [Tetanus Vaccines & Toxoid] Home Meds: Home Meds Albuterol [Ventolin HFA] 2 puff INH Q6HRRT PRN 06/27/13 [History] Aspirin [Ecotrin EC] 81 mg PO BEDTIME 06/27/13 [History] Furosemide 40 mg PO DAILY 06/27/13 [History] Nicotine [Nicotrol] 10 mg IH DAILY PRN 06/27/13 [History] Nitroglycerin [Nitrostat] 0.4 mg SL .[id number] PRN 06/27/13 [History] Omeprazole 20 mg PO DAILY 06/27/13 [History] Roflumilast [Daliresp] 500 mcg PO .NOON 06/27/13 [History] Rosuvastatin Calcium [Crestor] 20 mg PO BEDTIME 06/27/13 [History] Tiotropium [Spiriva Handihaler] 18 mcg INH DAILY 06/27/13 [History] Montelukast Sodium [Singulair] 10 mg PO BEDTIME 06/22/14 [History] allopurinoL [Zyloprim] 150 mg PO DAILY 06/22/14 [History] Potassium Chloride 40 meq PO BID 04/11/15 [History] Fluticasone Propion/Salmeterol [Advair Hfa 230-21 Mcg Inhaler] 2 puff IH BID 09/24/15 [History] Acetaminophen [Tylenol Extra Strength] 500 mg PO Q6H PRN 05/01/20 [History] Amoxicillin/Clavulanate K [Augmentin 600-42.9 MG/5 ML Susp] 600 mg PO BIDMEALS #100 ml 05/01/20 [Rx] Cmp-Lido/Diphen/Mylanta 10 ml PO QID PRN 05/01/20 [History] Famotidine 20 mg PO BID 05/01/20 [History] Folic Acid 1 mg PO DAILY 05/01/20 [History] carvediloL [Carvedilol] 12.5 mg PO BID 05/01/20 [History] Past Medical History HEENT History: Reports: Epistaxis, Impaired Vision Cardiovascular History: Reports: Afib, Aneurysm, CAD, Heart Valve Replacement, High Cholesterol, Hypertension, PVD Other Cardiovascular History: aortic stenosis Respiratory History: Reports: Asthma, COPD, SOB Gastrointestinal History: Reports: Diverticulosis, GERD, Hiatal Hernia, PUD, Other (See Below) Genitourinary History: Reports: None [employer] CUST[employer]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 SPECIALIST History: Reports: Other [employer] CUST[employer]ER EXPERIENCE SPECIALIST History: 3 nvd Musculoskeletal History: Reports: Arthritis, Back Pain, Chronic, Fracture, Fibromyalgia, Gout, Neck Pain, Chronic, Osteoarthritis Neurological History: Reports: Vertigo Psychiatric History: Reports: Anxiety Endocrine/Metabolic History: Reports: None Hematologic History: Reports: Anemia Immunologic History: Reports: None Oncologic (Cancer) History: Reports: Lung Dermatologic History: Reports: None - Infectious Disease History Infectious Disease History: Reports: Chicken Pox, Measles - Past Surgical History HEENT Surgical History: Reports: Adenoidectomy, Tonsillectomy Cardiovascular Surgical History: Reports: Percutaneous Transluminal Angioplasty, Valve Replacement Other Cardiovascular Surgeries/Procedures: aortic valve replacement 01/18/2016 GI Surgical History: Reports: Appendectomy, Colonoscopy, EGD, Hernia Repair/Other, Other (See Below) Other GI Surgeries/Procedures: 14 inches of colon removed Female Surgical History: Reports: D&C Neurological Surgical History: Reports: None Musculoskeletal Surgical History: Reports: ORIF Social & Family History - Family History Family Medical History: No Pertinent Family History HEENT: Reports: Cataract Cardiac: Reports: CAD, Heart Failure, [place] Other Cardiac Family History: brother had bypass and mother had a heart attack Respiratory: Reports: COPD GI: Reports: Cholelithiasis, GERD : Reports: UTI, Recurrent Other Family History: sister gets lots of UTI OBGYN: Reports: , Other (See Below) Other OBGYN Family History: mom miscarried Musculoskeletal: Reports: Arthritis, Back pain, Chronic, Gout Dermatologic: Reports: Eczema Other Dermatologic Family History: mom had eczema - Tobacco Use Tobacco Use Status *Q: Never Tobacco User Second Hand Smoke Exposure: No - Caffeine Use Caffeine Use: Reports: Coffee Other Caffeine Use: 1 cup daily - Living Situation & Occupation Living situation: Reports: Occupation: Retired ED ROS GENERAL - Review of Systems Review Of Systems: Comprehensive ROS is negative, except as noted in HPI. ED EXAM, GENERAL - Physical Exam Exam: See Below Exam Limited By: No Limitations General Appearance: Alert, WD/WN, Anxious, Moderate Distress Eye Exam: Bilateral Eye: EOMI, Normal Inspection, PERRL Ears: Normal External Exam, Normal Canal, Hearing Grossly Normal, Normal TMs Nose: Normal Inspection, Normal Mucosa, No Blood Throat/Mouth: Normal Inspection, Normal Lips, Normal Teeth, Normal Gums, Normal Oropharynx, Normal Voice, No Airway Compromise Head: Atraumatic, Normocephalic Neck: Normal Inspection, Supple, Non-Tender, Full Range of Motion Respiratory/Chest: No Respiratory Distress, Lungs Clear, Normal Breath Sounds, No Accessory Muscle Use, Chest Non-Tender Cardiovascular: Normal Peripheral Pulses, Regular Rate, Rhythm, No Edema, No Gallop, No JVD, No Murmur, No Rub GI/Abdominal: Normal Bowel Sounds, Soft, Non-Tender, No Organomegaly, No Distention, No Abnormal Bruit, No Mass (Female) Exam: Deferred Rectal (Female) Exam: Deferred Back Exam: Normal Inspection, Full Range of Motion, NT Extremities: Normal Inspection, Normal Range of Motion, Non-Tender, Normal Capillary Refill, No Pedal Edema Neurological: Alert, Oriented, CN II-XII Intact, Normal Cognition, Normal Gait, Normal Reflexes, No Motor/Sensory Deficits Psychiatric: Normal Affect, Normal Mood Skin Exam: Warm, Dry, Intact, Normal Color, No Rash Lymphatic: No Adenopathy #1 Interpretation EKG Date: 12/18/20 Time: 12:36 Rhythm: NSR Rate (Beats/Min): 70 [place]: Normal P-Wave: Present QRS: Normal ST-T: Normal QT: Normal Comparison: No Change Course - Vital Signs Last Recorded V/S: Last Vital Signs Temp 97.4 F 12/18/20 12:34 Pulse 80 12/18/20 12:34 Resp 16 12/18/20 12:34 BP 173/89 H 12/18/20 12:34 Pulse Ox 97 12/18/20 12:34 - Orders/Labs/Meds Labs: Laboratory Tests 12/18/20 12/18/20 Range/Units 12:44 12:44 WBC 8.9 (5.0-10.0) 10^3/uL RBC 4.17 L (4.2-5.4) 10^6/uL Hgb 12.1 D (12.0-16.0) g/dL Hct 36.8 L (37.0-47.0) % MCV 88.2 (80-100) fL MCH 29.0 (27.0-34.0) pg MCHC 32.9 L (33.0-35.0) g/dL Plt Count 265 (150-450) 10^3/uL Neut % (Auto) 72.1 (42.2-75.2) % Lymph % (Auto) 14.2 L (20.5-50.1) % [place] % (Auto) 11.2 H (2-8) % Eos % (Auto) 2.1 (1.0-3.0) % Baso % (Auto) 0.4 (0.0-1.0) % Sodium 133 L (136-145) mmol/L Potassium 3.9 (3.5-5.1) mmol/L Chloride 98 (98-107) mmol/L Carbon Dioxide 25 (21-32) mmol/L Anion Gap 13.9 H (7-13) mEq/L BUN 9 (7-18) mg/dL Creatinine 0.65 (0.55-1.02) mg/dL Est Cr Clr Drug Dosing 53.77 mL/min Estimated GFR (MDRD) > 60 BUN/Creatinine Ratio 13.8 (No establ ref range) Glucose 98 (70-99) mg/dL Calcium 8.8 (8.5-10.1) mg/dL Total Bilirubin 0.4 (0.2-1.0) mg/dL AST 21 (15-37) U/L ALT 23 (14-59) U/L Alkaline Phosphatase 88 (46-116) U/L Troponin I High Sens 21 (<=51) pg/mL Total Protein 7.0 (6.4-8.2) g/dL Albumin 3.6 (3.4-5.0) g/dL Globulin 3.4 Albumin/Globulin Ratio 1.1 Departure - Departure Time of Disposition: 13:42 Disposition: Home, Self-Care 01 Condition: Fair Clinical Impression: Anxiety Hypertension Qualifiers: Hypertension type: unspecified Qualified Code(s): I10 - Essential (primary) hypertension Forms: ED Department Discharge Care Plan Goals: The patient was advised of the examination, lab, EKG and blood pressure readings during the visit in the ED. The patient was encouraged to monitor her blood pressure at least 2 hours after taking her blood pressure medications over the next week. The patient should follow-up with her primary care facility and discuss other medications that may reduce her anxiety. If the patient has any additional symptoms or concerns, the patient should either return to the e mergency department or visit her primary care facility. Sepsis Event Note (ED) - Focused Exam Vital Signs: Vital Signs Temp Pulse Resp BP Pulse Ox 12/18/20 12:34 97.4 F 80 16 173/89 H 97
[2020-12-18 13:11] LABS: ANION GAP 13.9 mEq/L (7-13); CHLORIDE,CL 98 mmol/L (98-107); SODIUM,NA 133 mmol/L (136-145)
== END 2020-12-18 14:04 | disposition home or self-care (01) ==
LOC: DL.ED 12:16
DX: I10 Essential (primary) hypertension (principal); F41.9 Anxiety disorder, unspecified; I48.91 Unspecified atrial fibrillation; I25.10 Atherosclerotic heart disease of native coronary artery without angina pectoris; E78.00 Pure hypercholesterolemia, unspecified; J44.9 Chronic obstructive pulmonary disease, unspecified; K21.9 Gastro-esophageal reflux disease without esophagitis; M19.90 Unspecified osteoarthritis, unspecified site; Z88.8 Allergy status to other drugs, medicaments and biological substances; Z88.7 Allergy status to serum and vaccine; Z79.82 Long term (current) use of aspirin; Z79.899 Other long term (current) drug therapy
CPT/HCPCS: 36415; 80053; 84484; 85025; 93005; 99283-25

== ENCOUNTER → 2021-01-23 | Day surgery (SDC) | payer MEDICARE, BC ==
[~2021-01-23] MED LIST: Acetaminophen 325 MG Tab PO PRN; Acetaminophen/Codeine 300-30 MG Tab PO PRN; Apraclonidine 0.5% Ophth Soln 5 ML Bot EYELF ONE; Balanced Salt Solution Ophth Irrig 500 ML Bottle IOCULAR ONE; Cataract Ophth Solution EYELF ONE; Chondroitin Sulfate/Hyaluronate Sodium Ophth Inj 0.75 ML Syringe EYELF ONE; Dexamethasone 4 MG/ML SDV IV ONE; Dexamethasone/Neomycin/Polymyxin B Ophth Oint 3.5 GM Tube EYELF ONE; Diclofenac Sodium 0.1% Ophth Soln 5 ML Bottle EYELF ONE; Lidocaine 1% 30 ML SDV ONE; Midazolam 1 MG/ML 2 ML SDV IV ONE; Moxifloxacin 0.5% Ophth Soln 3 ML Bottle EYELF ONE; Ondansetron 4 MG/2 ML SDV IVPUSH PRN; Phenylephrine 10% Ophth Soln 5 ML Bot EYELF ONE; Povidone-Iodine 5% Sterile Ophth Soln 30 ML Bottle EYELF ONE; Proparacaine 0.5% Ophth Soln 15 ML Bottle EYELF ONE; Sodium Chloride 0.9% 10 ML Syringe FLUSH PRN; Sodium Chloride 0.9% 10 ML Syringe IV ONE; Tetracaine HCl/PF 0.5% 4 ML Bottle EYELF ONE; Timolol Maleate 0.5% Ophth Soln 5 ML Bottle EYELF ONE; Tropicamide 1% Ophth Soln 15 ML Bottle EYELF ONE; Vancomycin 500 MG SDV EYELF ONE
[2021-01-23 11:54] VITALS: BP 118/54; PULSE 76
--- NOTE | 2021-01-24 06:57 | OR ---
DATE: 01/23/2021 PREOPERATIVE DIAGNOSIS: Visually significant mixed cataract, left eye. POSTOPERATIVE DIAGNOSIS: Visually significant mixed cataract, left eye. PROCEDURE: Extracapsular cataract extraction with intraocular lens implant, left eye. ANESTHESIA: Topical/local MAC. COMPLICATIONS: None. INDICATION: Ms. Gould was seen in the clinic. She was referred by her regular signals intelligence superintendent, Dr. De La Rosa. She has complained of difficulty reading, difficulty seeing street signs, difficulty watching and seeing television. She has noticed a slow progressive change and she is unhappy with her vision. Dr. De La Rosa was not able to improve her vision and meet her visual needs with a change in glasses. I explained options, offered cataract surgery, and I explained risks including the potential for infection, retinal detachment, loss of vision, need for additional surgery, amongst others. We have discussed implant options. She has requested a mono focal implant. She is comfortable wearing glasses following surgery if necessary. OPERATIVE DESCRIPTION: After informed consent was obtained and the risks, benefits, and alternatives were explained, the patient was brought to the operative suite and topical anesthesia was administered. The patient was then prepped and draped in the sterile fashion and attention was placed on the left eye. A sterile lid speculum was placed into the left eye to allow operative exposure. A full-thickness paracentesis was made in the temporal portion of the operative eye. Preservative-free lidocaine 0.1 mL was injected into the anterior chamber followed by viscoelastic. A full-thickness corneal incision was then made into the anterior chamber. A bent needle cystotome was used to create a small karan in the anterior capsule. The capsulorrhexis forceps was then used to create a 360-degree curvilinear capsulorrhexis. The nucleus was then removed using a phacoemulsification handpiece and the remaining cortical material was then removed with irrigation and aspiration handpiece. Following removal of the cortical material, the capsular bag was then inspected and noted to be free of any holes or tears. Viscoelastic was then injected into the capsular bag and the intraocular lens was inserted into the capsular bag. The viscoelastic material was then removed from both the anterior and posterior chambers and from behind the IOL. The lens and capsular bag were then reinspected. The IOL was well centered and the capsular bag intact. The wound and paracentesis sites were inspected and hydrated with balanced saline solution. Both were found to be self- sealing. The intraocular pressure was assessed digitally and found to be within normal range. A good red reflex was noted at the completion of the procedure. No complications occurred during the operation. At the completion of the procedure, Maxitrol, Voltaren, and Iopidine drops were placed into the operative eye. A sterile eye shield was placed over the operative eye and the patient was transported to the postoperative recovery area having tolerated the procedure well. Postoperative instructions were given along with a postoperative appointment. The patient was advised to call with any questions or concerns. [facility] /[id number]
== END | disposition home or self-care (01) ==
LOC: DL.SDS 09:22
PROVIDERS: ATTEND Ophthalmology
DX: H26.8 Other specified cataract (principal); J44.9 Chronic obstructive pulmonary disease, unspecified; I25.10 Atherosclerotic heart disease of native coronary artery without angina pectoris; E78.5 Hyperlipidemia, unspecified; I10 Essential (primary) hypertension; G43.109 Migraine with aura, not intractable, without status migrainosus; K21.9 Gastro-esophageal reflux disease without esophagitis; I73.9 Peripheral vascular disease, unspecified; R73.03 Prediabetes; C34.32 Malignant neoplasm of lower lobe, left bronchus or lung; C77.9 Secondary and unspecified malignant neoplasm of lymph node, unspecified; C78.1 Secondary malignant neoplasm of mediastinum; F17.210 Nicotine dependence, cigarettes, uncomplicated; Z90.49 Acquired absence of other specified parts of digestive tract; Z98.890 Other specified postprocedural states; Z79.899 Other long term (current) drug therapy; Z88.8 Allergy status to other drugs, medicaments and biological substances; Z88.7 Allergy status to serum and vaccine
CPT/HCPCS: 00142; A9270-GY; J1100; J2250; J3370; V2632

== ENCOUNTER 2021-01-30 08:38 | Day surgery (SDC) | payer MEDICARE, BC ==
[~2021-01-30 08:38] MED LIST changes: -Acetaminophen 325 MG Tab PO PRN; -Acetaminophen/Codeine 300-30 MG Tab PO PRN; -Apraclonidine 0.5% Ophth Soln 5 ML Bot EYELF ONE; -Balanced Salt Solution Ophth Irrig 500 ML Bottle IOCULAR ONE; -Cataract Ophth Solution EYELF ONE; +Cataract Ophth Solution EYERT ONE; -Chondroitin Sulfate/Hyaluronate Sodium Ophth Inj 0.75 ML Syringe EYELF ONE; -Dexamethasone 4 MG/ML SDV IV ONE; -Dexamethasone/Neomycin/Polymyxin B Ophth Oint 3.5 GM Tube EYELF ONE; -Diclofenac Sodium 0.1% Ophth Soln 5 ML Bottle EYELF ONE; -Lidocaine 1% 30 ML SDV ONE; -Midazolam 1 MG/ML 2 ML SDV IV ONE; -Moxifloxacin 0.5% Ophth Soln 3 ML Bottle EYELF ONE; -Ondansetron 4 MG/2 ML SDV IVPUSH PRN; -Phenylephrine 10% Ophth Soln 5 ML Bot EYELF ONE; -Povidone-Iodine 5% Sterile Ophth Soln 30 ML Bottle EYELF ONE; -Proparacaine 0.5% Ophth Soln 15 ML Bottle EYELF ONE; -Sodium Chloride 0.9% 10 ML Syringe FLUSH PRN; -Sodium Chloride 0.9% 10 ML Syringe IV ONE; -Tetracaine HCl/PF 0.5% 4 ML Bottle EYELF ONE; -Timolol Maleate 0.5% Ophth Soln 5 ML Bottle EYELF ONE; -Tropicamide 1% Ophth Soln 15 ML Bottle EYELF ONE; -Vancomycin 500 MG SDV EYELF ONE
[2021-01-30] MEDS ORDERED: Midazolam 1 MG/ML 2 ML SDV IV ONE (08:39)
[2021-01-30] MEDS ORDERED: Dexamethasone 4 MG/ML SDV IV ONE (08:39)
[2021-01-30] MEDS ORDERED: Sodium Chloride 0.9% 10 ML Syringe IV ONE (08:39)
[2021-01-30] MEDS ORDERED: Moxifloxacin 0.5% Ophth Soln 3 ML Bottle EYERT ONE (09:00)
[2021-01-30] MEDS ORDERED: Povidone-Iodine 5% Sterile Ophth Soln 30 ML Bottle EYERT ONE ×2 (09:00→09:42)
[2021-01-30] MEDS ORDERED: Timolol Maleate 0.5% Ophth Soln 5 ML Bottle EYERT ONE (09:00)
[2021-01-30] MEDS ORDERED: Sodium Chloride 0.9% 10 ML Syringe FLUSH PRN (09:00)
[2021-01-30] MEDS ORDERED: Proparacaine 0.5% Ophth Soln 15 ML Bottle EYERT ONE (09:00)
[2021-01-30] MEDS ORDERED: Acetaminophen 325 MG Tab PO PRN (09:00)
[2021-01-30] MEDS ORDERED: Acetaminophen/Codeine 300-30 MG Tab PO PRN (09:00)
[2021-01-30] MEDS ORDERED: Ondansetron 4 MG/2 ML SDV IVPUSH PRN (09:00)
[2021-01-30] MEDS ORDERED: Tropicamide 1% Ophth Soln 15 ML Bottle EYERT ONE (09:00)
[2021-01-30] MEDS ORDERED: Phenylephrine 10% Ophth Soln 5 ML Bot EYERT PRN (09:00)
[2021-01-30] MEDS ORDERED: Tobramycin 0.3% Ophth Drops 5 ML Bottle EYERT ONE (09:00)
[2021-01-30] MEDS ORDERED: Apraclonidine 0.5% Ophth Soln 5 ML Bot EYERT ONE (09:42)
[2021-01-30] MEDS ORDERED: Tetracaine HCl/PF 0.5% 4 ML Bottle EYERT ONE (09:42)
[2021-01-30] MEDS ORDERED: Vancomycin 500 MG SDV EYERT ONE (09:43)
[2021-01-30] MEDS ORDERED: Balanced Salt Solution Ophth Irrig 500 ML Bottle IOCULAR ONE (09:43)
[2021-01-30] MEDS ORDERED: Lidocaine 1% 30 ML SDV ONE (09:43)
[2021-01-30] MEDS ORDERED: Chondroitin Sulfate/Hyaluronate Sodium Ophth Inj 0.75 ML Syringe EYERT ONE (09:43)
[2021-01-30] MEDS ORDERED: Dexamethasone/Neomycin/Polymyxin B Ophth Oint 3.5 GM Tube EYERT ONE (09:43)
[2021-01-30] MEDS ORDERED: Diclofenac Sodium 0.1% Ophth Soln 5 ML Bottle EYERT ONE (09:43)
[2021-01-30 12:16] VITALS: BP 112/56; PULSE 79
--- NOTE | 2021-01-30 18:30 | OR ---
DATE: 01/30/2021 PREOPERATIVE DIAGNOSIS: Visually significant mixed cataract, right eye. POSTOPERATIVE DIAGNOSIS: Visually significant mixed cataract, right eye. PROCEDURE: Extracapsular cataract extraction with intraocular lens implant, right eye. ANESTHESIA: Topical/local MAC. COMPLICATIONS: None. INDICATION: Ms. Gould was seen in the clinic with complaints of blurred vision. Examination revealed visually significant mixed cataract. She did see her regular retanner, Dr. De La Rosa. Dr. De La Rosa was not able to improve her vision and meet her visual needs with a change in glasses. She has difficulty seeing television, books, difficulty driving, difficulty with bright lights and glare, difficulty seeing street signs, and she is unhappy with her vision. I have offered cataract surgery and I explained risks including the potential for infection, retinal detachment, loss of vision, need for additional surgery, amongst others. We discussed implant options. She has requested a mono focal implant. She understands that she may require glasses for some activities, especially near work. OPERATIVE DESCRIPTION: After informed consent was obtained and the risks, benefits, and alternatives were explained, the patient was brought to the operative suite and topical anesthesia was administered. The patient was then prepped and draped in the sterile fashion and attention was placed on the right eye. A sterile lid speculum was placed into the right eye to allow operative exposure. A full-thickness paracentesis was made in the temporal portion of the operative eye. Preservative-free lidocaine 0.1 mL was injected into the anterior chamber followed by viscoelastic. A full-thickness corneal incision was then made into the anterior chamber. A bent needle cystotome was used to create a small karan in the anterior capsule. The capsulorrhexis forceps was then used to create a 360-degree curvilinear capsulorrhexis. The nucleus was then removed using a phacoemulsification handpiece and the remaining cortical material was then removed with irrigation and aspiration handpiece. Following removal of the cortical material, the capsular bag was then inspected and noted to be free of any holes or tears. Viscoelastic was then injected into the capsular bag and the intraocular lens was inserted into the capsular bag. The viscoelastic material was then removed from both the anterior and posterior chambers and from behind the IOL. The lens and capsular bag were then reinspected. The IOL was well centered and the capsular bag intact. The wound and paracentesis sites were inspected and hydrated with balanced saline solution. Both were found to be self- sealing. The intraocular pressure was assessed digitally and found to be within normal range. A good red reflex was noted at the completion of the procedure. No complications occurred during the operation. At the completion of the procedure, Maxitrol, Voltaren, and Iopidine drops were placed into the operative eye. A sterile eye shield was placed over the operative eye and the patient was transported to the postoperative recovery area having tolerated the procedure well. Postoperative instructions were given along with a postoperative appointment. The patient was advised to call with any questions or concerns. [facility] /[id number]
== END 2021-01-30 10:50 | disposition home or self-care (01) ==
LOC: DL.SDS 08:38
PROVIDERS: ATTEND Ophthalmology
DX: H26.8 Other specified cataract (principal); D64.9 Anemia, unspecified; I25.10 Atherosclerotic heart disease of native coronary artery without angina pectoris; J44.9 Chronic obstructive pulmonary disease, unspecified; K21.9 Gastro-esophageal reflux disease without esophagitis; E78.5 Hyperlipidemia, unspecified; I10 Essential (primary) hypertension; C34.32 Malignant neoplasm of lower lobe, left bronchus or lung; C78.1 Secondary malignant neoplasm of mediastinum; G62.9 Polyneuropathy, unspecified; Z98.890 Other specified postprocedural states; Z87.891 Personal history of nicotine dependence; Z79.899 Other long term (current) drug therapy; Z79.82 Long term (current) use of aspirin; Z88.8 Allergy status to other drugs, medicaments and biological substances; Z88.7 Allergy status to serum and vaccine
CPT/HCPCS: 00142; A9270-GY; J1100; J2250; J3370; V2632